=== PATIENT | female | born 1965 | race Caucasian/White ===

== ENCOUNTER → 2016-11-22 | Outpatient (CLI) | payer BC ==
[~2016-11-22] MED LIST: ATOR-24 PO; CYCL0.052 OP; FLUT0.0529; IBUP-1050 PO; LEVO100T7 PO; LORA-741 PO; PRED10TA PO; PROB1TAB16 PO; SERT-234 PO
--- NOTE | 2016-11-23 14:07 | MAMMOGRAPHY REPORT ---
BILATERAL DIGITAL SCREENING MAMMOGRAM TOMOSYNTHESIS WITH CAD: 11/22/2016 CLINICAL HISTORY: Routine screening. Patient has no complaints. TECHNIQUE: Breast tomosynthesis in addition to standard 2D mammography was performed. Current study was also evaluated with a Computer Aided Detection (CAD) system. COMPARISON: Comparison is made to exams dated: 11/20/2015 mammogram, 11/18/2014 mammogram, 09/24/2013 ultrasound, 07/24/2012 mammogram, 06/30/2011 mammogram, and 06/28/2010 ultrasound - [facility]. BREAST COMPOSITION: There are scattered areas of fibroglandular density in both breasts. FINDINGS: There are stable asymmetries in the left upper outer middle and posterior breast. No kathy picious mass, architectural distortion or cluster of microcalcifications is seen. IMPRESSION: ACR BI-RADS CATEGORY 1: NEGATIVE There is no mammographic evidence of malignancy. A 1 year screening mammogram is recommended. The p atient will receive written notification of the results. Approximately 10% of breast cancers are not detected with mammography. A negative mammographic repor t should not delay biopsy if a clinically suggestive mass is present. Laurence Francis M.D. ay/:11/22/2016 21:36:17 Proofing Machine Operator: [place] BIGGS(Aiyana)(M), [facility] letter sent: Normal 1/2 BI-RADS Code: ACR BI-RADS Category 1: Negative
== END | disposition home or self-care (01) ==
LOC: C.MAMM 08:23
PROVIDERS: ATTEND Obstetrics & Gynecology
DX: Z12.31 Encounter for screening mammogram for malignant neoplasm of breast (principal)

== ENCOUNTER → 2016-12-30 | Outpatient (CLI) | payer BC | END | disposition home or self-care (01) | LOC: C.PAPS 16:39 | PROVIDERS: ATTEND Obstetrics & Gynecology | DX: Z01.419 Encounter for gynecological examination (general) (routine) without abnormal findings (principal) ==

== ENCOUNTER → 2017-11-30 | Outpatient (CLI) | payer OTHER ==
--- NOTE | 2017-12-04 07:39 | MAMMOGRAPHY REPORT ---
BILATERAL DIGITAL SCREENING MAMMOGRAM TOMOSYNTHESIS WITH CAD: 11/30/2017 CLINICAL HISTORY: Routine screening. Patient has no complaints. TECHNIQUE: Breast tomosynthesis in addition to standard 2D mammography was performed. Current study was also evaluated with a Computer Aided Detection (CAD) system. COMPARISON: Comparison is made to exams dated: 11/22/2016 mammogram, 11/20/2015 mammogram, 11/18/2014 m ammogram, 09/20/2013 mammogram, 07/24/2012 mammogram, and 06/30/2011 mammogram - [facility]. BREAST COMPOSITION: There are scattered areas of fibroglandular density in both breasts. FINDINGS: No suspicious masses, calcifications, or areas of architectural distortion are noted in ei ther breast. There has been no significant interval change compared to prior exams. IMPRESSION: ACR BI-RADS CATEGORY 1: NEGATIVE There is no mammographic evidence of malignancy. A 1 year screening mammogram is recommended. The pa tient will receive written notification of the results. Approximately 10% of breast cancers are not detected with mammography. A negative mammographic report should not delay biopsy if a clinically suggestive mass is present. Leann Richardson M.D. ah/:11/30/2017 15:36:28 Engineer/Conductor: [place] [employer](Aiyana)(M), [facility] letter sent: Normal 1/2 BI-RADS Code: ACR BI-RADS Category 1: Negative
== END | disposition home or self-care (01) ==
LOC: C.MAMM 14:48
PROVIDERS: ATTEND Obstetrics & Gynecology
DX: Z12.31 Encounter for screening mammogram for malignant neoplasm of breast (principal)

== ENCOUNTER → 2018-01-29 | Outpatient (CLI) | payer OTHER | END | disposition home or self-care (01) | LOC: C.PAPS 18:38 | PROVIDERS: ATTEND Obstetrics & Gynecology | DX: Z01.419 Encounter for gynecological examination (general) (routine) without abnormal findings (principal) ==

== ENCOUNTER 2021-02-11 03:09 | Observation (INO) ==
[2021-02-11] MEDS ORDERED: FAMOTIDINE 20MG/5ML IV PUSH IV STA (03:22)
[2021-02-11] MEDS ORDERED: SODIUM CHLORIDE 0.9% 1000ML 1,000 ML IV STA (03:22)
[2021-02-11] MEDS ORDERED: GI COCKTAIL ED USE PO ONE (03:22)
--- NOTE | 2021-02-11 03:38 | Emergency Department Note ---
History of Present Illness General Chief complaint: Abdominal Pain Stated complaint: ABDOMINAL DISCOMFORT/NAUSEA Time Seen by Provider: 02/11/21 03:15 History of Present Illness Maximum Pain Intensity: 4 This 55-year-old presents to the ER complaining of epigastric discomfort Location: Epigastric Quality: Nauseated Severity: Moderate Duration: This evening Timing: This evening Context: Patient was concerned and came in Modifying factors: better with nothing; worse with laying flat Patient states last night she had a similar episode. This does not feel like her reflux. She still has her gallbladder. Patient denies chest pain, dyspnea, fevers, vomiting, diarrhea, urinary symptoms. Home Medications Medication Instructions Recorded Confirmed Type atorvastatin 40 mg tablet 40 mg PO PM tab 07/23/19 09/08/20 History levothyroxine 100 mcg tablet 100 mcg PO QAM tab 07/23/19 09/08/20 History metformin 500 mg tablet 1,000 mg PO QPM 12/30/19 09/08/20 History sertraline 50 mg tablet 50 mg PO PM tab 12/30/19 09/08/20 History loratadine [Claritin] 10 mg PO DAILY PRN 01/02/20 09/08/20 History "Allergy Shots" 1 dose IM WK 01/16/20 09/01/20 History fluticasone propionate [Flonase 2 spray INTRANASAL DAILY PRN 01/16/20 09/01/20 History Allergy Relief] lorazepam 0.5 mg PO DAILY PRN 01/16/20 09/01/20 History Januvia 100 mg PO QAM 09/01/20 09/08/20 History cholecalciferol (vitamin D3) 125 mcg PO HS 09/01/20 09/08/20 History [Vitamin D3] diclofenac sodium [Voltaren] 2 g TOPICAL QID PRN 09/01/20 09/08/20 History ibuprofen [Advil] 400 mg PO BID PRN 09/01/20 09/08/20 History lisinopril 2.5 mg PO HS 09/01/20 09/08/20 History triamcinolone acetonide 1 applic TOPICAL HS PRN 09/01/20 09/08/20 History Allergies Allergy/AdvReac Type Severity Reaction Status Date / Time mold AdvReac Mild HEAD Verified 09/08/20 13:10 PRESSURE Yeast AdvReac Mild dry skin Verified 09/08/20 13:10 amoxicillin AdvReac Unknown diarrhea Verified 09/08/20 13:10 dust AdvReac Sneezing Uncoded 09/08/20 13:10 Past Med/Surg History Medical History Anxiety Arthritis Atypical ductal hyperplasia of left breast Back problem occasional back pain Benign positional vertigo Depression Diabetes mellitus, type 2 NIDDM Dry eyes Fatty liver GERD (gastroesophageal reflux disease) hx Hyperlipidemia Hypertension Hypothyroidism Kidney disease reason for lisinopril per patient Morbid obesity Sleep apnea "mild"/no device Surgical History H/O cervical biopsy History of esophagogastroduodenoscopy (EGD) History of tooth extraction WISDOM TEETH Hx of colonoscopy Hx of lumpectomy S/P sinus surgery S/P tonsillectomy Family History Father Myocardial infarction Heart disease Mother Breast cancer Dx in 80s Heart disease Grandmother Cancer Hypertension Grandmother (Maternal) Colorectal cancer Grandmother (Paternal) Diabetes Denies family history of Ovarian cancer Social History Smoking Status: Never smoker Second Hand Exposure: Yes (as a child); Hx Alcohol Use: Yes Alcohol type: wine Hx Substance Use: No Preferred Language: Kazakh Communication Ability: Effective Pillowcase Turner Required: No Beliefs That Will Affect Care: None marital status: Current Living Situation: Spouse current occupational status: unemployed 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 Feels Safe at Home: Yes Assistive Devices: Glasses Review of Systems A total of 10 systems reviewed and were otherwise negative Physical Exam Vital Signs Vital Signs - 24 hr 02/11/21 03:16 02/11/21 03:30 02/11/21 03:40 Temperature 36.9 C Temperature Source Oral Pulse Rate 86 81 Pulse Rhythm Regular Pulse Strength Normal Respiratory Rate 20 18 Respiratory Effort / Characteristics Non-Labored Spontaneous Respiratory Depth Normal Respiratory Pattern Regular Blood Pressure 143/81 H 129/87 Blood Pressure Mean 101 101 Blood Pressure Position Sitting Pulse Oximetry 98 98 97 Oxygen Delivery Method Room Air Room Air Sepsis Recent Fever Within 48 Hours No Sepsis New/Unexplained Change in Mental Status N/A Sepsis Action Taken by Nursing No Action Required 02/11/21 05:21 02/11/21 05:25 02/11/21 06:00 Temperature Temperature Source Pulse Rate 87 90 91 H Pulse Rhythm Pulse Strength Respiratory Rate 19 15 17 Respiratory Effort / Characteristics Respiratory Depth Respiratory Pattern Blood Pressure 127/73 127/73 139/78 Blood Pressure Mean 91 91 98 Blood Pressure Position Pulse Oximetry 98 96 99 Oxygen Delivery Method Sepsis Recent Fever Within 48 Hours Sepsis New/Unexplained Change in Mental Status Sepsis Action Taken by Nursing VITALS: Vitals are noted on the nurse's note and reviewed by myself. Vital signs stable. GENERAL: Pleasant female, in no acute distress, nondiaphoretic, well-developed well-nourished. SKIN: Capillary reflex less than 2 seconds. HEENT: Normocephalic. PERRLA. EOMI. Nares patent. Mucous membranes moist. Neck is supple without nuchal rigidity. HEART: Regular rate and rhythm LUNGS: Clear to auscultation bilaterally without wheezes, rales or rhonchi. No retractions or accessory muscle use. ABDOMEN: Positive bowel sounds x 4. Normal tympanic percussion. Soft, tender to palpation epigastric right upper quadrant, without masses or organomegaly. No CVA tenderness no guarding or rebound tenderness. MUSCULOSKELETAL: No gross musculoskeletal defects. NEURO: Patient was alert and oriented to person place and time. No focal neurological deficits. Course Administered Medications Discontinued Medications Al Hydrox/Mg Hydrox/Simethicone (Gi Cocktail Ed Use) 1 dose PO ONE ONE Stop: 02/11/21 03:23 Last Admin: 02/11/21 03:42 Dose: 1 dose Documented by: [id number] Dicyclomine HCl (Dicyclomine Hcl 10 Mg/Ml 2 Ml Amp/Vial) 20 mg IM NOW ONE Stop: 02/11/21 04:45 Last Admin: 02/11/21 04:59 Dose: 20 mg Documented by: [id number] Famotidine (Famotidine 20mg/5ml Iv Push) 20 mg IV ONE STA Stop: 02/11/21 03:23 Last Admin: 02/11/21 03:42 Dose: 20 mg Documented by: [id number] Sodium Chloride (Nss 1000ml) 1,000 mls @ 999 mls/hr IV .Q1H1M STA Stop: 02/11/21 04:22 Last Infusion: 02/11/21 04:56 Dose: 0 mls/hr Documented by: [id number] Admin: 02/11/21 03:41 Dose: 999 mls/hr Documented by: [id number] Ioversol (Ioversol 100ml) 100 ml IV ONCE ONE Stop: 02/11/21 05:24 Last Admin: 02/11/21 05:23 Dose: 80 ml Documented by: [id number] Ondansetron HCl (Ondansetron Inj 2 Mg/Ml 2 Ml Vial) 4 mg IV NOW STA Stop: 02/11/21 04:45 Last Admin: 02/11/21 04:59 Dose: 4 mg Documented by: [id number] Medical Decision Making Medical Records Attestation: I reviewed the patient's medical records. Home Medications Current Medication List: was personally reviewed by me Laboratory Data Attestation: I reviewed the patient's lab results. Result diagrams: 02/11/21 03:30 02/11/21 03:30 Lab Results 02/11/21 02/11/21 02/11/21 Range/Units 03:30 03:30 04:53 WBC 9.21 (4.8-10.8) K/uL RBC 4.56 (4.2-5.4) M/uL Hgb 12.5 (12.0-16.0) g/dL Hct 38.5 (37-47) % MCV 84.4 (80-100) fL MCH 27.4 (25-34) pg MCHC 32.5 (32-36) g/dL RDW Std Deviation 40.2 (36.4-46.3) fL RDW Coeff of [place] 13.3 (11.5-14.5) % Plt Count 295 (130-400) K/uL MPV 8.7 (7.4-10.4) fL Immature Gran % (Auto) 0.1 % Neut % (Auto) 60.7 % Lymph % (Auto) 23.8 % [place] % (Auto) 10.5 % Eos % (Auto) 4.6 % Baso % (Auto) 0.3 % Neut # (Auto) 5.59 (1.4-6.5) K/uL Lymph # (Auto) 2.19 (1.2-3.4) K/uL [place] # (Auto) 0.97 H (0.11-0.59) K/uL Eos # (Auto) 0.42 (0-0.5) K/uL Baso # (Auto) 0.03 (0-0.2) K/uL Immature Gran # (Auto) 0.01 (0.00-0.02) K/uL Sodium 141 (136-145) mmol/L Potassium 4.3 (3.5-5.1) mmol/L Chloride 109 H (98-107) mmol/L Carbon Dioxide 24 (21-32) mmol/L Anion Gap 8.0 (3-11) BUN 16 (7-18) mg/dl Creatinine 0.90 (0.6-1.2) mg/dl Est Cr Clr Drug Dosing 90.8 ml/min Est GFR ( Amer) 82.8 Est GFR (Non-Af Amer) 71.5 BUN/Creatinine Ratio 18.0 (10-20) Glucose 147 H (70-99) mg/dl Calcium 9.0 (8.5-10.1) mg/dl Total Bilirubin 0.3 (0.2-1) mg/dl AST 38 H (15-37) U/L ALT 74 (12-78) U/L Alkaline Phosphatase 149 H (45-117) U/L Troponin I < 0.015 (0-0.045) ng/ml Total Protein 7.6 (6.4-8.2) gm/dl Albumin 3.4 (3.4-5.0) gm/dl Globulin 4.2 H (2.5-4.0) gm/dl Albumin/Globulin Ratio 0.8 L (0.9-2) Lipase 255 (73-393) U/L Specimen Hemolysis Urine Color Yellow Urine Appearance Clear (Clear) Urine pH 5.0 (4.5-7.5) Ur Specific [place] 1.018 (1.000-1.030) Urine Protein Negative (Negative) Urine Glucose (UA) Negative (Negative) Urine Ketones Negative (Negative) Urine Blood Negative (Negative) Urine Nitrite Negative (Negative) Urine Bilirubin Negative (Negative) Urine Urobilinogen Negative (Negative) Ur Leukocyte Esterase Negative (Negative) COVID-19 Eval Order 02/11/21 Range/Units 06:22 WBC (4.8-10.8) K/uL RBC (4.2-5.4) M/uL Hgb (12.0-16.0) g/dL Hct (37-47) % MCV (80-100) fL MCH (25-34) pg MCHC (32-36) g/dL RDW Std Deviation (36.4-46.3) fL RDW Coeff of [place] (11.5-14.5) % Plt Count (130-400) K/uL MPV (7.4-10.4) fL Immature Gran % (Auto) % Neut % (Auto) % Lymph % (Auto) % [place] % (Auto) % Eos % (Auto) % Baso % (Auto) % Neut # (Auto) (1.4-6.5) K/uL Lymph # (Auto) (1.2-3.4) K/uL [place] # (Auto) (0.11-0.59) K/uL Eos # (Auto) (0-0.5) K/uL Baso # (Auto) (0-0.2) K/uL Immature Gran # (Auto) (0.00-0.02) K/uL Sodium (136-145) mmol/L Potassium (3.5-5.1) mmol/L Chloride (98-107) mmol/L Carbon Dioxide (21-32) mmol/L Anion Gap (3-11) BUN (7-18) mg/dl Creatinine (0.6-1.2) mg/dl Est Cr Clr Drug Dosing ml/min Est GFR ( Amer) Est GFR (Non-Af Amer) BUN/Creatinine Ratio (10-20) Glucose (70-99) mg/dl Calcium (8.5-10.1) mg/dl Total Bilirubin (0.2-1) mg/dl AST (15-37) U/L ALT (12-78) U/L Alkaline Phosphatase (45-117) U/L Troponin I (0-0.045) ng/ml Total Protein (6.4-8.2) gm/dl Albumin (3.4-5.0) gm/dl Globulin (2.5-4.0) gm/dl Albumin/Globulin Ratio (0.9-2) Lipase (73-393) U/L Specimen Hemolysis Urine Color Urine Appearance (Clear) Urine pH (4.5-7.5) Ur Specific [place] (1.000-1.030) Urine Protein (Negative) Urine Glucose (UA) (Negative) Urine Ketones (Negative) Urine Blood (Negative) Urine Nitrite (Negative) Urine Bilirubin (Negative) Urine Urobilinogen (Negative) Ur Leukocyte Esterase (Negative) COVID-19 Eval Order CovFluRsv at [facility] Imaging Data Attestation: I personally reviewed and interpreted this imaging study as follows: MDM Narrative Prior records/ancillary studies reviewed. Triage Nursing notes reviewed. The patient's history was concerning for abdominal pain. Differential diagnosis: Etiologies such as appendicitis, diverticulitis, PUD, biliary pathology, UTI, pancreatitis, obstruction, mesenteric ischemia, aortic pathology, infections, inflammatory bowel disease, renal colic, as well as others were entertained. Physical examination findings: As above. ER treatment provided: An order was placed for continuous cardiac monitoring. The monitor shows a rate of 60-100 with a sinus rhythm. IV fluids, Pepcid, GI cocktail, Zofran, Bentyl On reassessment the patient felt better. Diagnostics interpreted by me: ECG: Ordered for epigastric discomfort EKG: Normal sinus, normal intervals, no acute ST-T wave changes. Impression normal sinus rhythm interpreted by myself I think arrhythmia is unlikely. EKG shows normal sinus rhythm with no interval abnormalities such as QT prolongation or WPW. There are no findings to suggest Brugada syndrome. Cardiac monitoring in the emergency department reveals no tachycardic or bradycardic dysrhythmia. Hypertrophic cardiomyopathy was cons idered but there are no clear historical elements pointing toward this. EKG is not suggestive. The QRS voltage is not extremely large and there are no suggestive Q waves. The labs revealed mild hyperglycemia that DKA. No leukocytosis Negative urine. Negative troponin Imaging studies: US RUQ: The visualized portion of the pancreas is unremarkable. There is fatty infiltration of the liver and hepatomegaly with the liver measuring 20.3 cm craniocaudad. The portal vein is patent with normal direction of flow. No focal liver lesion is seen. The right kidney measures 11.3 cm with normal appearance. No hydronephrosis. The gallbladder is partially distended with no visible stones. The wall t hickness is normal. No pericholecystic fluid is seen. The common bile duct is nondilated measuring 5 mm. Radiologist: Melchor Lopez MD CT ABDOMEN & PELVIS With Contrast: The appendix is upper normal measuring 10-11 mm in diameter. No definite surrounding inflammation is seen to indicate acute appendicitis. The appendix is located 2 cm from the right mid lateral abdominal wall. Correlate with physical exam findings. Bowel loops are nondilated. No acute inflammatory changes are seen involving the bowel. Fatty infiltration of the liver and hepatomegaly with the liver measuring 21 cm craniocaudad. No focal liver lesion is seen. The gallbladder, spleen, pancreas, adrenal glands, kidneys appear unremarkable. The uterus, adnexa, and urinary bladder appear within normal limits. Moderate degenerative changes in the lower lumbar spine. No acute fracture or destructive bone lesion is seen. Radiologist: Melchor Lopez MD Consultation: A consultation was placed with the surgical PA Joselito. the case was discussed and diagnostics were reviewed. The patient was evaluated in the ER for further treat ment. Dr. Pennington will come in and evaluate the patient. Exam and history seem consistent abdominal pain with unclear etiology. CAT scan was reviewed and surgery will evaluate the patient. Case is signed out to nurse practitioner Kailee Quick pending surgical evaluation and reevaluation stable condition. By the evaluation outlined above emergent etiologies such as diverticulitis, PUD, biliary pathology, UTI, pancreatitis, obstruction, mesenteric ischemia, aortic pathology, inflammatory bowel disease, renal colic, as well as others were deemed relatively unlikely. The chart was completed utilizing [employer] Speech voice recognition software. Grammatical errors, random word insertions, pronoun errors, and incomplete sentences are an occassional consequence of this system due to software limitations, ambient noise, and hardware issues. Any formal questions or concerns about the content, text, or information contained within the body of this dictation should be directly addressed to the physician pharmacy innovation assistant for clarification. Impression & Plan Abdominal pain in female patient Discharge Plan Visit Data Chief Complaint: Abdominal Pain Stated Complaint: ABDOMINAL DISCOMFORT/NAUSEA ED Provider: Thuy Shabazz ED Midlevel Provider: Jodee Cardenas Discharge Problem: Abdominal pain in female patient Patient Disposition: Being Evaluated by Surgeon Condition: Good Discharge Instructions Activity Restrictions/Additional Instructions: Forms Stand Alone Forms: [employer] Prescriptions Prescriptions: No Action sertraline 50 mg tablet 50 mg PO PM RF: 0 metformin 500 mg tablet 1,000 mg PO QPM RF: 0 levothyroxine 100 mcg tablet 100 mcg PO QAM RF: 0 atorvastatin 40 mg tablet 40 mg PO PM RF: 0 lisinopril 2.5 mg Tablet 2.5 mg PO HS RF: 0 Januvia 100 mg Tablet 100 mg PO QAM RF: 0 cholecalciferol (vitamin D3) [Vitamin D3] 125 mcg (5,000 unit) Tablet 125 mcg PO HS RF: 0 diclofenac sodium [Voltaren] 1 % Gel 2 g TOPICAL QID PRN (Reason: Pain) RF: 0 triamcinolone acetonide 0.1 % Cream 1 applic TOPICAL HS PRN (Reason: Itching) RF: 0 ibuprofen [Advil] 200 mg Tablet 400 mg PO BID PRN (Reason: Pain) RF: 0 loratadine [Claritin] 10 mg Tablet 10 mg PO DAILY PRN (Reason: Allergy Symptoms) RF: 0 lorazepam 0.5 mg Tablet 0.5 mg PO DAILY PRN (Reason: Anxiety) RF: 0 fluticasone propionate [Flonase Allergy Relief] 50 mcg/actuation [place],Suspension 2 spray INTRANASAL DAILY PRN (Reason: sinus congestion) RF: 0 "Allergy Shots" 1 dose IM WK RF: 0 Referrals Referrals: PCP,NO [Primary Care Provider] -
[2021-02-11 03:39] LABS: Basophils # (auto) 0.03 K/uL (0-0.2); Basophils % (auto) 0.3 %; Eosinophils # (auto) 0.42 K/uL (0-0.5); Eosinophils % (auto) 4.6 %; Hematocrit (blood only) 38.5 % (37-47); Hemoglobin 12.5 g/dL (12.0-16.0); Immature Granulocytes # (auto) 0.01 K/uL (0.00-0.02); Immature Granulocytes % (auto) 0.1 %; Lymphocytes # (auto) 2.19 K/uL (1.2-3.4); Lymphocytes % (auto) 23.8 %; Mean Corpuscular Hemoglobin 27.4 pg (25-34); Mean Corpuscular Hgb Conc 32.5 g/dL (32-36); Mean Corpuscular Volume 84.4 fL (80-100); Mean Platelet Volume 8.7 fL (7.4-10.4); Monocytes # (auto) 0.97 K/uL (0.11-0.59); Monocytes % (auto) 10.5 %; Neutrophils # (auto) 5.59 K/uL (1.4-6.5); Neutrophils % (auto) 60.7 %; Platelet Count 295 K/uL (130-400); RDW Coefficient of Variation 13.3 % (11.5-14.5); RDW Standard Deviation 40.2 fL (36.4-46.3); Red Blood Count 4.56 M/uL (4.2-5.4); White Blood Count 9.21 K/uL (4.8-10.8)
[2021-02-11 04:15] LABS: Alanine Aminotransferase 74 U/L (12-78); Albumin Globulin Ratio 0.8 (0.9-2); Albumin Level 3.4 gm/dl (3.4-5.0); Alkaline Phosphatase 149 U/L (45-117); Aspartate Aminotransferase 38 U/L (15-37); Bilirubin,Total 0.3 mg/dl (0.2-1); Blood Urea Nitrogen 16 mg/dl (7-18); Carbon Dioxide 24 mmol/L (21-32); Chloride 109 mmol/L (98-107); Creatinine Clr Calc Pharmacy 90.8 ml/min; Est GFR (African American) 82.8; Est GFR (Non-African American) 71.5; Globulin 4.2 gm/dl (2.5-4.0); Glucose 147 mg/dl (70-99); Lipase 255 U/L (73-393); Potassium 4.3 mmol/L (3.5-5.1); Sodium 141 mmol/L (136-145); Total Protein 7.6 gm/dl (6.4-8.2); Troponin I < 0.015 ng/ml (0-0.045)
[2021-02-11] MEDS ORDERED: ONDANSETRON INJ 2 MG/ML 2 ML VIAL IV STA (04:44)
[2021-02-11] MEDS ORDERED: DICYCLOMINE HCL 10 MG/ML 2 ML AMP/VIAL IM ONE (04:44)
[2021-02-11 05:11] LABS: Appearance Urine Clear (Clear); Bilirubin Urine Negative (Negative); Blood Urine Negative (Negative); Color Urine Yellow; Glucose Urine UA Negative (Negative); Ketones Urine Negative (Negative); Leukocyte Esterase Urine Negative (Negative); Nitrite Urine Negative (Negative); Protein Urine Negative (Negative); Specific Gravity Urine 1.018 (1.000-1.030); Urobilinogen Urine Negative (Negative)
[2021-02-11] MEDS ORDERED: OPTIRAY 320 100ml IV ONE (05:23)
--- NOTE | 2021-02-11 06:34 | Surgery Consultation ---
Date of Consultation February 11, 2021 Assessment & Plan (1) Abdominal pain in female patient: The etiology of patient's abdominal pain is not entirely clear. Based on her physical exam findings as well as clinical presentation and imaging we have offered her 2 options: 1. We could admit the patient to the hospital for observation repeating labs in approximately 24 hours. If her repeat labs and clinical exam are indicative of appendicitis we could then proceed with appendectomy 2. We can proceed directly with laparoscopy which would definitively tell us if the patient has an appendicitis After presenting the patient of these 2 options she is still uncertain about how she would like to proceed and would like to think about these options for a few more minutes. I discussed case with my attending physician Dr. Pennington who will evaluate the patient at bedside this morning. Further recommendations will be forthcoming based on patient's clinical status as well as Dr. Pennington's review. as above. pt seen. unclear etiology. pain is generalized. no leukocytosis. associated nausea. symptoms have been going on for "weeks"..... will admit. order HIDA scan. repeat wbc/crp tomorrow. is symptoms progress may need dx laparoscopy/appendectomy. if symptoms improve and HIDA neg will d/c tomorrow for out-pt work up. History of Present Illness Reason for Consultation: Abdominal pain History of Present Illness This is a 55-year-old female who came to [facility] emergency department secondary to abdominal pain. Patient says that the pain was initially located primarily in the epigastric area but now at the time of my interview has generalized pain. She notes that looking back she has had similar pain to this in and on and off fashion over the past several weeks however last evening she had associated nausea vomiting and the pain was more severe than usual so this prompted her emergency room visit. She denies any fevers, shakes, chills. She did have some nausea vomiting. He notes her last oral intake was approximately 6:00 PM last night. She notes that she has never had any surgical procedures on her abdomen. She denies any modifying factors and notes the pain does not radiate. In the emergency department the patient did have labs and imaging which I independently reviewed. She had an ultrasound of her gallbladder that showed a partial distention of the gallbladder with no visible gallstones and no gallbladder wall thickness. There is no pericholecystic fluid and bile duct was not dilated on the study. This was followed with a CT scan of the abdomen and pelvis utilizing IV contrast without oral contrast. On this study the appendix was noted to be in the upper limits of normal measuring 10 to 11 mm in size. There is no definite inflammation seen in the periappendiceal region. Labs included a CBC where her white blood cell count, hemoglobin, hematocrit, and platelet count are all within normal range. Chemistry profile showed her sodium, potassium, BUN, and creatinine were all within normal range. Her lipase was noted to be normal. Urinalysis was not indicative of urinary tract infecti on. At the time of my interview the patient was resting comfortably in bed in no distress. Allergies Allergy/AdvReac Type Severity Reaction Status Date / Time mold AdvReac Mild HEAD Verified 09/08/20 13:10 PRESSURE Yeast AdvReac Mild dry skin Verified 09/08/20 13:10 amoxicillin AdvReac Unknown diarrhea Verified 09/08/20 13:10 dust AdvReac Sneezing Uncoded 09/08/20 13:10 Home Medications Medication Instructions Recorded Confirmed Type atorvastatin 40 mg tablet 40 mg PO PM tab 07/23/19 09/08/20 History levothyroxine 100 mcg tablet 100 mcg PO QAM tab 07/23/19 09/08/20 History metformin 500 mg tablet 1,000 mg PO QPM 12/30/19 09/08/20 History sertraline 50 mg tablet 50 mg PO PM tab 12/30/19 09/08/20 History loratadine [Claritin] 10 mg PO DAILY PRN 01/02/20 09/08/20 History "Allergy Shots" 1 dose IM WK 01/16/20 09/01/20 History fluticasone propionate [Flonase 2 spray INTRANASAL DAILY PRN 01/16/20 09/01/20 History Allergy Relief] lorazepam 0.5 mg PO DAILY PRN 01/16/20 09/01/20 History Januvia 100 mg PO QAM 09/01/20 09/08/20 History cholecalciferol (vitamin D3) 125 mcg PO HS 09/01/20 09/08/20 History [Vitamin D3] diclofenac sodium [Voltaren] 2 g TOPICAL QID PRN 09/01/20 09/08/20 History ibuprofen [Advil] 400 mg PO BID PRN 09/01/20 09/08/20 History lisinopril 2.5 mg PO HS 09/01/20 09/08/20 History triamcinolone acetonide 1 applic TOPICAL HS PRN 09/01/20 09/08/20 History Patient History Medical History Anxiety Arthritis Atypical ductal hyperplasia of left breast Back problem occasional back pain Benign positional vertigo Depression Diabetes mellitus, type 2 NIDDM Dry eyes Fatty liver GERD (gastroesophageal reflux disease) hx Hyperlipidemia Hypertension Hypothyroidism Kidney disease reason for lisinopril per patient Morbid obesity Sleep apnea "mild"/no device Surgical History H/O cervical biopsy History of esophagogastroduodenoscopy (EGD) History of tooth extraction WISDOM TEETH Hx of colonoscopy Hx of lumpectomy S/P sinus surgery S/P tonsillectomy Family History Father Myocardial infarction Heart disease Mother Breast cancer Dx in 80s Heart disease Grandmother Cancer Hypertension Grandmother (Maternal) Colorectal cancer Grandmother (Paternal) Diabetes Denies family history of Ovarian cancer Social History Smoking Status: Never smoker Second Hand Exposure: Yes (as a child); Hx Alcohol Use: Yes Alcohol type: wine Hx Substance Use: No Preferred Language: Romanian Communication Ability: Effective [employer] Required: No Beliefs That Will Affect Care: None marital status: Current Living Situation: Spouse current occupational status: unemployed 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 Feels Safe at Home: Yes Assistive Devices: Glasses Review of Systems Constitutional: no fever and no chills Eyes: no diplopia Ear, Nose, Mouth, Throat: no ear pain Respiratory: no cough and no dyspnea Cardiovascular: no chest pain Gastrointestinal: + abdominal pain, + nausea and + vomiting Genitourinary: no dysuria Integumentary: no rash Neurologic: no localized weakness Physical Exam Constitutional: well developed, well nourished and + obese; no acute distress Eyes: no conjunctival abnormality Wears glasses ENMT: Ears: no hearing impairment Neck: trachea midline Respiratory: normal respiratory effort; no respiratory distress and no labored breathing Cardiovascular: Rate/Rhythm: regular rate and regular rhythm Gastrointestinal (Abdomen): Abdomen is rotund but soft. Bowel sounds are present. There is no rebound tenderness or guarding. The patient did have pain in a generalized fashion throughout her abdomen with palpation. With deep palpation of the right lower quadrant this did elicit a significant pain response. Musculoskeletal: No calf tenderness Skin: no rashes, warm and dry Neurologic: moves all extremities Psychiatric: A+Ox3, euthymic affect Results & Data ([facility]) Vital Signs (Past 12 Hours) Vital Signs Temp Pulse Resp BP Pulse Ox 02/11/21 05:21 87 19 127/73 98 02/11/21 03:40 81 18 129/87 97 02/11/21 03:30 98 02/11/21 03:16 36.9 C 86 20 143/81 H 98 PG Care Time/CCT Total # of Minutes Spent Total Time Spent with Patient: Total time spent is greater than 50% in coordination of care (as documented) at patient's floor/unit and/or counseling patient: Coding Level of Care Code 89931 Inpt Consult Level 4 Diagnoses Abdominal pain in female patient R10.9
[2021-02-11 07:11] LABS: Influenza A virus by PCR Negative (Neg); Influenza B virus by PCR Negative (Neg); RSV by PCR Negative (Neg); SARS CoV2 RNA(COVID-19) InHosp NEGATIVE (Negative)
--- NOTE | 2021-02-11 07:29 | CT Scan Report ---
ABDOMEN AND PELVIS CT WITH IV CONTRAST CT DOSE: 1935.11 mGy.cm HISTORY: mid abd pain TECHNIQUE: Multiaxial CT images of the abdomen and pelvis were performed following the use of intrave nous contrast. A dose lowering technique was utilized adhering to the principles of ALARA. COMPARISON STUDY: None. FINDINGS: The lung bases are clear. No pneumoperitoneum. No pneumatosis. No suspicious lytic or blast ic osseous lesions. Mild hepatic steatosis. The gallbladder, spleen, adrenal glands, pancreas, and ki dneys are unremarkable. No retroperitoneal lymphadenopathy. The bladder, uterus, bilateral adnexa are within normal limits. No pelvic free fluid. No bowel wall thickening or obstruction. The appendix me asures up to 8 mm in diameter. However, there are no periappendiceal inflammatory change to suggest a cute appendicitis. IMPRESSION: 1. The appendix measures up to 8 mm in diameter. However, there is no periappendiceal inflammatory ch jd to suggest acute appendicitis. 2. No definite bowel wall thickening or obstruction. 3. Hepatic steatosis. 4. No hydronephrosis. ACT 112: Negative or not required by law. Electronically signed by: Isiah Perkins M.D. 02/11/2021 7:28 AM
--- NOTE | 2021-02-11 08:02 | Ultrasound Report ---
US gallbladder CLINICAL HISTORY: Abdominal pain. COMPARISON STUDY: Right upper quadrant ultrasound August 23, 2013. FINDINGS: This exam is compromised by suboptimal penetration. Hepatic echogenicity is increased. Sens itivity for detection of hepatic lesions is diminished on this exam but none are identified. There is mild hepatomegaly. The pancreatic body is normal. Head and tail are obscured. No gallstones are note d. There is no gallbladder wall thickening. There is no biliary ductal dilatation. The common bile me asures 5 mm in caliber. There is no right hydronephrosis. IMPRESSION: 1. No gallstones or biliary ductal dilatation. 2. Hepatic steatosis. 3. Partially obscured pancreas. ACT 112: Negative or not required by law. Electronically signed by: Iker Moncada M.D. 02/11/2021 8:01 AM
[2021-02-11] MEDS ORDERED: LORATADINE 10 MG TAB PO PRN (09:05)
[2021-02-11] MEDS ORDERED: MoRPHine SULFATE 2 MG/ML CARP IV PRN (09:05)
[2021-02-11] MEDS ORDERED: ONDANSETRON INJ 2 MG/ML 2 ML VIAL IV PRN (09:05)
[2021-02-11] MEDS ORDERED: ACETAMINOPHEN 1,000 MG/100 ML VIAL IV PRN (09:05)
[2021-02-11] MEDS ORDERED: FLUTICASONE PROPIONATE NA SPR 16 GM BTL PRN (09:05)
[2021-02-11] MEDS ORDERED: LORazepam 0.5 MG TAB PO PRN (09:05)
[2021-02-11] MEDS ORDERED: DICLOFENAC SOD 1% GEL 100 GM TUBE EXT PRN (09:05)
[2021-02-11] MEDS ORDERED: MoRPHine SULFATE 4 MG/ML 1 ML CARP\\VIAL IV PRN (09:05)
[2021-02-11] MEDS ORDERED: PHARMACY GLYCEMIC MGMT CONSULT SCH (09:22)
[2021-02-11] MEDS ORDERED: GLUCOSE 40% GEL 15 GM TUBE PO PRN (09:45)
[2021-02-11] MEDS ORDERED: CARBOHYDRATES FOR HYPOGLYCEMIA PO PRN (09:45)
[2021-02-11] MEDS ORDERED: GLUCOSE 10 TABS/TUBE PO PRN (09:45)
[2021-02-11] MEDS ORDERED: GLUCAGON FOR INJ 1 MG VIAL IM PRN (09:45)
[2021-02-11] MEDS ORDERED: DEXTROSE 50% 50 ML SYRINGE IV PRN (09:45)
[2021-02-11] MEDS: FAMOTIDINE 20 MG in SYRINGE 3 ML IV SCH (09:57)
[2021-02-11] MEDS: SODIUM CHLORIDE 0.9% 1000ML 1,000 ML IV SCH ×2 (09:57→20:00)
[2021-02-11] MEDS: LEVOTHYROXINE SODIUM 100 MCG TABLET PO SCH (09:58)
[2021-02-11] MEDS: INSULIN ASPART 100 UNITS/ML 3 ML PEN SC SCH ×2 (13:02→17:36)
[2021-02-11] MEDS ORDERED: SODIUM CHLORIDE 0.9% IV ONE (14:00)
[2021-02-11] MEDS ORDERED: SINCALIDE IV ONE (14:00)
--- NOTE | 2021-02-11 14:48 | Pharmacy Report ---
Pharmacy Glycemic Short Note 2 - Date of Service February 11, 2021 - Glycemic Short BSG Results (Last 24 hours): 02/11/21 02/11/21 03:30 12:02 Glucose 147 H POC Glucose 131 H OUTPATIENT ANTIDIABETIC REGIMEN: * Metformin 1gm PO qPM * Januvia 100mg PO qAM * HbA1c: 7.8% (01/03/20) -- updated A1c pending with tomorrow's labs ASSESSMENT: * Ms Winkler is a 55yo diabetic female admitted with abdominal pain. * Patient is currently NPO for possible OR tomorrow (for laparoscopy vs appendectomy). * On admission, patient placed on SQ insulin and PO meds held. PLAN FOR INPATIENT GLYCEMIC CONTROL: * Hold outpatient oral diabetes medications * Basal insulin * None at this time * Bolus insulin * NovoLog per scale ACHS or Q6hrs while NPO * Goal Range: Low 110 mg/dL - High 140 mg/dL * Correction Factor: 30 mg/dL/unit * Nutritional / Prandial insulin per carb ratio of 1 unit per 10 grams CHO consumed PLAN FOR DISCHARGE: * pending updated A1c
--- NOTE | 2021-02-11 15:23 | Nuclear Medicine Report ---
NM hepatobiliary EF CLINICAL HISTORY: 55 years-old Female with examine for cholecystitis. Acute right upper quadrant abd ominal pain TECHNIQUE: Following the intravenous administration of 5.5 mCi of technetium-99m Choletec, sequentia l abdominal images were obtained. In order to evaluate the contractile response of the gallbladder, 2.41 mcg of Kinevac was administered by slow intravenous infusion over 30 min starting approximately 60 min after the administration of the radiopharmaceutical. Sequential imaging was continued for 45 min after the start of the Kinevac infusion. COMPARISON: CT abdomen and pelvis 02/11/2021 FINDINGS: There is prompt, uniform accumulation of the tracer by the liver. There is normal filling of the int rahepatic ducts, common bile duct and gallbladder and normal excretion of the tracer into the duodenu m. There is normal contraction of the gallbladder. The calculated gallbladder ejection fraction is 98% (normal >40%). There is moderate enterogastric reflux. IMPRESSION: 1. Normal contractile response of the gallbladder to Kinevac infusion. 2. Moderate enterogastric reflux. ACT 112: Negative or not required by law. The above report was generated using voice recognition software. It may contain grammatical, syntax o r spelling errors. Electronically signed by: Shon Espinal M.D. 02/11/2021 3:22 PM
[2021-02-11] MEDS ORDERED: SERTRALINE HCL 50 MG TABLET PO SCH (21:00)
[2021-02-12] MEDS: INSULIN ASPART 100 UNITS/ML 3 ML PEN SC SCH ×2 (00:25→06:44)
[2021-02-12] MEDS: SODIUM CHLORIDE 0.9% 1000ML 1,000 ML IV SCH ×2 (03:44→10:37)
[2021-02-12] MEDS: LEVOTHYROXINE SODIUM 100 MCG TABLET PO SCH (05:30)
[2021-02-12 05:40] LABS: Basophils # (auto) 0.03 K/uL (0-0.2); Basophils % (auto) 0.4 %; Eosinophils # (auto) 0.38 K/uL (0-0.5); Eosinophils % (auto) 5.4 %; Hematocrit (blood only) 35.6 % (37-47); Hemoglobin 11.7 g/dL (12.0-16.0); Immature Granulocytes # (auto) 0.01 K/uL (0.00-0.02); Immature Granulocytes % (auto) 0.1 %; Lymphocytes # (auto) 1.97 K/uL (1.2-3.4); Lymphocytes % (auto) 27.9 %; Mean Corpuscular Hemoglobin 27.8 pg (25-34); Mean Corpuscular Hgb Conc 32.9 g/dL (32-36); Mean Corpuscular Volume 84.6 fL (80-100); Mean Platelet Volume 8.6 fL (7.4-10.4); Monocytes % (auto) 8.5 %; Neutrophils # (auto) 4.08 K/uL (1.4-6.5); Neutrophils % (auto) 57.7 %; Platelet Count 300 K/uL (130-400); RDW Coefficient of Variation 13.3 % (11.5-14.5); RDW Standard Deviation 40.7 fL (36.4-46.3); Red Blood Count 4.21 M/uL (4.2-5.4); White Blood Count 7.07 K/uL (4.8-10.8)
--- NOTE | 2021-02-12 06:19 | Electrocardiogram Report ---
Test Reason : Blood Pressure : / mmHG Vent. Rate : 081 BPM Atrial Rate : 081 BPM P-R Int : 168 ms QRS Dur : 092 ms QT Int : 388 ms P-R-T Axes : 071 061 036 degrees QTc Int : 450 ms Normal sinus rhythm Normal ECG When compared with ECG of 03-JAN-2020 09:33, No significant change was found Confirmed by Antwan Ledesma ([id number]) on 02/12/2021 6:19:13 AM Referred By: REFERRED SELF Confirmed By:Antwan Ledesma
[2021-02-12 06:24] LABS: Albumin Globulin Ratio 0.9 (0.9-2); Albumin Level 3.2 gm/dl (3.4-5.0); BUN Creatinine Ratio 10.8 (10-20); Bilirubin,Total 0.5 mg/dl (0.2-1); Calcium 8.4 mg/dl (8.5-10.1); Est GFR (African American) 86.3; Est GFR (Non-African American) 74.5; Globulin 3.5 gm/dl (2.5-4.0); Potassium 3.9 mmol/L (3.5-5.1); Total Protein 6.7 gm/dl (6.4-8.2)
--- NOTE | 2021-02-12 07:32 | Pharmacy Report ---
Pharmacy Glycemic Short Note 2 - Date of Service February 12, 2021 - Glycemic Short BSG Results (Last 24 hours): 02/11/21 02/11/21 02/11/21 12:02 17:15 20:27 Glucose POC Glucose 131 H 130 H 129 H 02/12/21 02/12/21 02/12/21 00:21 05:25 06:03 Glucose 151 H POC Glucose 125 H 152 H OUTPATIENT ANTIDIABETIC REGIMEN: * Metformin 1gm PO qPM * Januvia 100mg PO qAM * HbA1c: 7.8% (01/03/20) -- updated A1c pending this AM ASSESSMENT: 02/12 * Pt has received 1 units of insulin over the past 24hrs * 0 units of basal with (not indicated based on BSGs) * 1 units of bolus with NovoLog * BSGs 206-289-391-125-152 mg/dl * Pt remains NPO for possible OR today. * No changes needed at this time. * Will consider the addition of basal insulin when BSG > 180 mg/dl and/or diet resumed. 02/11 * Ms Winkler is a 55yo diabetic female admitted with abdominal pain. * Patient is currently NPO for possible OR tomorrow (for laparoscopy vs appendectomy). * On admission, patient placed on SQ insulin and PO meds held. PLAN FOR INPATIENT GLYCEMIC CONTROL: no changes at this time. * Hold outpatient oral diabetes medications * Basal insulin * None at this time * Bolus insulin * NovoLog per scale ACHS or Q6hrs while NPO * Goal Range: Low 110 mg/dL - High 140 mg/dL * Correction Factor: 30 mg/dL/unit * Nutritional / Prandial insulin per carb ratio of 1 unit per 10 grams CHO consumed PLAN FOR DISCHARGE: * pending updated A1c
[2021-02-12] MEDS: FAMOTIDINE 20 MG in SYRINGE 3 ML IV SCH (08:32)
--- NOTE | 2021-02-12 08:37 | Surgery Progress Note ---
Date of Service February 12, 2021 Assessment & Plan (1) Abdominal pain in female patient: We will initiate a diet and if she tolerates she may go home today. No evidence clinically radiographically or laboratory celaya to indicate acute appendicitis. We discussed her HIDA scan which actually showed biliary hyperkinesia. Her gallbladder may be in fact the etiology of the majority of her symptoms. Nonetheless this is not acute or urgent and we can continue to work this up and plan treatment as an outpatient. We will send her home with some dicyclomine and Zofran in case her symptoms return. I would like to see her back in the office in 1 week. Admission and Anticipated Discharge Date Admission Date: February 11, 2021 Subjective Patient feeling "99% better" no further pain or nausea Physical Exam Constitutional: WD/WN, vitals as above no acute distress and not ill appearing Eyes: PERRL, conjunctivae normal, anicteric sclerae EOM intact bilaterally ENMT: external ear and nose normal, oropharynx normal Ears: no hearing impairment Neck: trachea midline, no thyromegaly Respiratory: normal respiratory effort; no respiratory distress and does not use accessory muscles Cardiovascular: Rate/Rhythm: regular rate and regular rhythm Gastrointestinal (Abdomen): normal bowel sounds, soft, nontender, no hepatosplenomegaly Skin: no rashes, warm and dry Psychiatric: Orientation: alert, oriented x 3 and cooperative Results & Data ([facility]) Vital Signs (Past 12 Hours) Vital Signs Temp Pulse Resp BP Pulse Ox 02/12/21 08:27 36.9 C 75 18 157/79 H 96 02/11/21 23:21 36.5 C 78 14 159/84 H 98 PG Care Time/CCT Total # of Minutes Spent Total Time Spent with Patient: Total time spent is greater than 50% in coordination of care (as documented) at patient's floor/unit and/or counseling patient: Coding Level of Care Code 57357 Subseq Hosp Care Lvl 3 Diagnoses Abdominal pain in female patient R10.9
[2021-02-12 08:40] LABS: Estimated Average Glucose 180 mg/dl; Hemoglobin A1C 7.9 % (4.5-5.6)
--- NOTE | 2021-02-16 08:13 | Discharge Summary ---
Date of Service February 16, 2021 Principal Diagnosis Abdominal Pain Discharge Exam awake/alert Respiratory normal respiratory effort Gastrointestinal (Abdomen) Inspection/Auscultation: abdomen not distended Percussion/Palpation: abdomen soft; abdomen nontender Discharge Data Allergies Allergy/AdvReac Type Severity Reaction Status Date / Time mold AdvReac Mild HEAD Verified 02/11/21 09:42 PRESSURE Yeast AdvReac Mild dry skin Verified 02/11/21 09:42 amoxicillin AdvReac Unknown diarrhea Verified 02/11/21 09:42 dust AdvReac Sneezing Uncoded 02/11/21 09:42 Ordered Studies 02/11/21 03:22 US gallbladder Urgent 02/11/21 04:33 CT abd pelvis IV con only Urgent Hospital Course (1) Abdominal pain in female patient: This is a 55y F who presented to the [facility] ED on 02/11/21 with complaints of abdominal pain. Abdominal pain was generalized in the ED, worsening in severity, and associated with nausea/vomiting. A CT a/p was performed revealing her appendix measures up to 8 mm in diameter, without any periappendiceal inflammatory change to suggest acute appendicitis. A RUQ US obtained was unremarkable. Laboratory data overall unremarkable. Due to patient's symptoms she was admitted overnight for observation and supportive care. A HIDA scan was obtained for further evaluation that showed an EF of 98%. This was discussed with patient as she may have an element of biliary hyperkinesia attributing to her symptoms. Patient remained NPO for bowel rest. On the AM of 02/12 patient reported vast improvement in her symptoms. A diet was initiated of which she tolerated without issues. AM labs unremarkable. Plan for patient to report to outpatient clinic in 1 week to follow up on her hospitalization and to discuss possible treatment options for her biliary hyperkinesia. Total Time Total Time Spent Total Time Spent (In Minutes): 10 Discharge Plan Discharge Items Patient Disposition: Home - Self-Care Reason For Visit: ABDOMINAL PAIN Discharge Diagnosis: abdominal pain Condition on Discharge: Good Activity: Per Instructions section Lifting: Gradually increase as tolerated Bathing: No limitations Exercise/Sports: Gradually increase as tolerated Driving/Machine Use: No limitations Non-emergency contact: Surgeon Call non-emergency contact if: you have any medication questions, your symptoms worsen, you have a fever and your temperature is above 101.5 Follow-up/Referrals: Viral Pennington, [Surgeon] - 02/17/21 1:15 pm (Please call to schedule follow up in clinic within 1 week) PCP,NO [Primary Care Provider] - Diet: Low Fiber Addtl Attending Provider Instructions: Pending Studies at Discharge: No Stand-Alone Forms: My [facility] Medications and DC Order Prescriptions: New dicyclomine 10 mg capsule 20 mg PO .every 6 hours PRN (Reason: abdominal discomfort) 7 Days Qty: 42 RF: 0 ondansetron HCl [Zofran] 4 mg tablet 4 mg PO Q8H PRN (Reason: nausea and vomiting) 7 Days Qty: 21 RF: 0 Continued sertraline 50 mg tablet 50 mg PO PM RF: 0 metformin 500 mg tablet 1,000 mg PO QPM RF: 0 levothyroxine 100 mcg tablet 100 mcg PO QAM RF: 0 atorvastatin 40 mg tablet 40 mg PO PM RF: 0 lisinopril 2.5 mg Tablet 2.5 mg PO HS RF: 0 Januvia 100 mg Tablet 100 mg PO QAM RF: 0 cholecalciferol (vitamin D3) [Vitamin D3] 125 mcg (5,000 unit) Tablet 125 mcg PO HS RF: 0 diclofenac sodium [Voltaren] 1 % Gel 2 g TOPICAL QID PRN (Reason: Pain) RF: 0 triamcinolone acetonide 0.1 % Cream 1 applic TOPICAL HS PRN (Reason: Itching) RF: 0 ibuprofen [Advil] 200 mg Tablet 400 mg PO BID PRN (Reason: Pain) RF: 0 loratadine [Claritin] 10 mg Tablet 10 mg PO DAILY PRN (Reason: Allergy Symptoms) RF: 0 lorazepam 0.5 mg Tablet 0.5 mg PO DAILY PRN (Reason: Anxiety) RF: 0 fluticasone propionate [Flonase Allergy Relief] 50 mcg/actuation [place],Suspension 2 spray INTRANASAL DAILY PRN (Reason: sinus congestion) RF: 0 Discharge Orders: Discharge Order (Routine); Ordered 02/12/21 Ordered By: Beverly Miranda/Other Patient Handouts: Abdominal Pain, Low-Fiber Diet, Managing Type 2 Diabetes, Managing Diabetes: The A1C Test, Dicyclomine tablets or capsules, Ondansetron oral dissolving tablet Admission Data Admit Date/Time: 02/11/21 07:28 Attending Provider: Viral Pennington Admit Provider: Viral Pennington Primary Care Provider: PCP,NO Other Interventions: Discharge Summary Assessment (RN) Last Done: 02/12/21 10:19 Coding Level of Care Code D/C Day Management <30 mins Diagnoses Abdominal pain in female patient R10.9
== END 2021-02-12 12:23 | disposition home or self-care (01) ==
LOC: ED 03:09 → 3N 03:09

== ENCOUNTER 2022-04-18 17:46 | Inpatient (IN) ==
[2022-04-18] MEDS ORDERED: SODIUM CHLORIDE 0.9% 1000ML 1,000 ML IV STA (17:57)
[2022-04-18] MEDS ORDERED: dilTIAZem HCl 5 MG/ML 5 ML VIAL IV STA (17:57)
[2022-04-18] MEDS ORDERED: MAGNESIUM SULFATE / D5W 1 GM/100 ML BAG IV STA (17:58)
[2022-04-18 18:11] LABS: Basophils # (auto) 0.04 K/uL (0-0.2); Basophils % (auto) 0.5 %; Eosinophils # (auto) 0.36 K/uL (0-0.5); Eosinophils % (auto) 4.2 %; Hematocrit (blood only) 40.3 % (37-47); Hemoglobin 13.5 g/dL (12.0-16.0); Immature Granulocytes # (auto) 0.02 K/uL (0.00-0.02); Immature Granulocytes % (auto) 0.2 %; Lymphocytes # (auto) 2.39 K/uL (1.2-3.4); Lymphocytes % (auto) 27.7 %; Mean Corpuscular Hemoglobin 28.7 pg (25-34); Mean Corpuscular Hgb Conc 33.5 g/dL (32-36); Mean Corpuscular Volume 85.6 fL (80-100); Mean Platelet Volume 8.9 fL (7.4-10.4); Monocytes # (auto) 0.75 K/uL (0.11-0.59); Monocytes % (auto) 8.7 %; Neutrophils # (auto) 5.06 K/uL (1.4-6.5); Neutrophils % (auto) 58.7 %; Platelet Count 315 K/uL (130-400); RDW Coefficient of Variation 12.6 % (11.5-14.5); RDW Standard Deviation 40.1 fL (36.4-46.3); Red Blood Count 4.71 M/uL (4.2-5.4); White Blood Count 8.62 K/uL (4.8-10.8)
[2022-04-18 18:23] LABS: INR 0.9 (0.9-1.1); Partial Thromboplastin Ratio 0.9; Partial Thromboplastin Time 24.5 Seconds (21.0-31.0); Prothrombin Time 10.1 Seconds (9.0-12.0)
--- NOTE | 2022-04-18 18:28 | Emergency Department Note ---
Impression & Plan Atrial fibrillation with rapid ventricular response, Heart palpitations ED Provider Note NAME: JUSTIN RODRIGUEZ AGE: 56 SEX: F : 1965 ARRIVES VIA: Walk-In INFORMANT: Patient, ED PROVIDER(S): Mario Tim DO CHIEF COMPLAINT: Palpitations HPI: The patient is a 56-year-old female who presented to the emergency department for an evaluation of palpitations. The patient describes palpitations with heart racing. She describes dizziness. She denies having any syncope. She does feel lightheaded when she stands. She denies having any chest pain. She denies having any difficulty breathing at rest. She is had no lower extremity swelling or pain. The patient states she had a similar episode 2 weeks ago. That episode resolved spontaneously. She is not been seen by her family doctor recently for the symptoms but she was seen once a long time ago and no definite diagnosis was made. She has no history of atrial fibrillation or SVT. The patient states that she does have a history of thyroid issues. She states she is been compliant with all of her outpatient medications. ROS: See above HPI for pertinent positives & negatives. A total of 10 systems reviewed and were otherwise negative. PAST MEDICAL HISTORY: See Below PAST SURGICAL HISTORY: See Below FAMILY HISTORY: See Below SOCIAL HISTORY: See Below HOME MEDICATIONS: See Below ALLERGIES: See Below VITALS: See Below PHYSICAL EXAMINATION: GENERAL: The patient is awake and alert. The patient is somewhat anxious appearing. EYES: The conjunctivae are clear. The pupils are round and reactive. EARS, NOSE, MOUTH AND THROAT: The nose is without any evidence of any deformity. Mucous membranes are moist. Tongue is midline. NECK: The neck is nontender and supple. RESPIRATORY: Normal respiratory effort is noted there is no evidence of wheezing rhonchi or rales CARDIOVASCULAR: Tachycardic and irregular heart sounds are noted auscultation. There is no definite murmur. GASTROINTESTINAL: The abdomen is soft. Abdomen is nontender. MUSCULOSKELETAL/EXTREMITIES: There is no evidence of gross deformity full range of motion is noted in the hips and shoulders. SKIN: There is no obvious evidence of any rash. There are no petechiae, pallor or cyanosis noted. NEUROLOGIC: Patient is awake alert and oriented x3 strength is symmetric patellar reflexes are 2+ bilaterally MEDICAL DECISION MAKING: The patient is a 56-year-old female who presented to the emergency department for palpitations. The patient was found to be in atrial fibrillation with RVR. This would be a new diagnosis for her. She was controlled with IV fluids and IV Cardizem. On reevaluation she was having runs of sinus rhythm but also continued A. fib with RVR. The patient was reevaluated multiple times. Because of her symptomatology as well as her ongoing dysrhythmia I discussed her case with the on-call [facility] hospitalist group. They have agreed to evaluate the patient in the emergency department for further management and disposition. The patient's symptoms significantly improved when her rate controlled. Triage Nursing notes reviewed. Prior medical records reviewed Vital Signs: reviewed and remarkable for elevated blood pressure and tachycardia. Differential diagnosis: Premature contractions, electrolyte abnormality, cardiac dysrhythmia, thyroid dysfunction, pulmonary embolism, infection, gastrointestinal, as well as other pathologies. ER treatment provided: See below Diagnostics interpreted by me: ECG: EKG was obtained in the emergency department. My interpretation is atrial fibrillation with rapid ventricular response at [address] segment depressions were noted especially in the inferior and lateral leads. This was compared to a tracing from February 11, 2021. The changes are new compared to the previous tracing. Cardiac Monitoring: An order was placed for continuous cardiac monitoring. The monitor shows a rate of 88 bpm with atrial fibrillation Laboratory studies: As stated above and show below. Imaging studies: See below Consultation(s): I discussed this case with Dr. Snow who is on-call for the [facility] hospitalist group. Past Med/Surg History Medical History Anxiety and depression Arthritis Atypical ductal hyperplasia of left breast Back problem occasional back pain Benign positional vertigo Diabetes mellitus, type 2 Fatty liver Gastritis RECENT DX WITH EGD GERD (gastroesophageal reflux disease) Hiatal hernia Hyperlipidemia Hypertension Hypothyroidism Kidney disease reason for lisinopril per patient Morbid obesity Sleep apnea "mild"/no device Surgical History H/O cervical biopsy History of anesthesia reaction WITH RECENT EGD 2020 "COULD NOT BREATHE AND WAS CHOKING D/T SALIVA ON VOCAL CORD". ANESTHESIA CHARTED "laryngospasm". History of esophagogastroduodenoscopy (EGD) History of repair of hiatal hernia Laparoscipic Hiatal Hernia Repair Dr. Pennington 04/01/[address] Pennington 04/01/2021 Hx of colonoscopy Hx of lumpectomy left breast--benign S/P sinus surgery S/P tonsillectomy [place] teeth removed Family History (Updated 04/18/22 @ 19:58 by Dayron Snow MD) Father Heart disease Myocardial infarction Mother Heart disease Breast cancer Dx in 80s Atrial fibrillation Grandmother Cancer Hypertension Grandmother (Maternal) Colorectal cancer Grandmother (Paternal) Diabetes Other No family history of adverse response to anesthesia Denies family history of Ovarian cancer Social History Smoking Status: Never smoker Second Hand Exposure: No; Hx Alcohol Use: Yes Alcohol type: wine Preferred Language: South African Communication Ability: Effective Visual Impairment: No Limitations Clinical Psychologist Licensed Required: No Beliefs That Will Affect Care: None marital status: Current Living Situation: Spouse current occupational status: unemployed 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 Feels Safe at Home: Yes Assistive Devices: Glasses Allergies Allergies Allergy/AdvReac Type Severity Reaction Status Date / Time amoxicillin AdvReac Intermediate diarrhea Verified 05/12/21 09:42 mold AdvReac Mild HEAD Verified 05/12/21 09:42 PRESSURE Yeast AdvReac Mild dry skin Verified 05/12/21 09:42 dust AdvReac Mild Sneezing Uncoded 05/12/21 09:42 Home Meds Home Medications Medication Instructions Recorded Confirmed atorvastatin 40 mg tablet 40 mg PO PM tab 07/23/19 08/23/21 levothyroxine 100 mcg tablet 100 mcg PO QAM tab 07/23/19 08/23/21 metformin 500 mg tablet 500 mg PO BID 12/30/19 08/23/21 sertraline 50 mg tablet 50 mg PO PM tab 12/30/19 08/23/21 loratadine 10 mg tablet (Claritin) 10 mg PO DAILY PRN 01/02/20 08/23/21 fluticasone propionate 50 2 spray INTRANASAL DAILY PRN 01/16/20 08/23/21 mcg/actuation nasal spray,suspension (Flonase Allergy Relief) lorazepam 0.5 mg tablet 0.5 mg PO DAILY PRN 01/16/20 08/23/21 cholecalciferol (vitamin D3) 125 125 mcg PO HS 09/01/20 08/23/21 mcg (5,000 unit) tablet (Vitamin D3) diclofenac sodium 1 % topical gel 2 g TOPICAL QID PRN 09/01/20 08/23/21 (Voltaren) ibuprofen 200 mg tablet (Advil) 400 mg PO BID PRN 09/01/20 08/23/21 lisinopril 2.5 mg tablet 2.5 mg PO QPM 09/01/20 08/23/21 sitagliptin 100 mg tablet (Januvia) 100 mg PO QAM 09/01/20 08/23/21 triamcinolone acetonide 0.1 % 1 applic TOPICAL HS PRN 09/01/20 08/23/21 topical cream Previous Rx's Medication Instructions Recorded dicyclomine 10 mg capsule 20 mg PO BID PRN 30 Days #60 cap 02/17/21 ondansetron HCl 4 mg tablet 4 mg PO Q8H PRN #10 tab 04/01/21 (Zofran) Results & Data (ED) Vital Signs Vital Signs - 24 hr 04/18/22 17:47 04/18/22 18:04 04/18/22 18:13 Temperature 36.9 C Temperature Source Oral Pulse Rate 145 H 117 H Pulse Rate [Right Finger] Pulse Rate from SpO2 Sensor 125 H Pulse Rhythm [Right Finger] Pulse Strength [Right Finger] Respiratory Rate 18 13 Respiratory Effort / Characteristics Non-Labored Spontaneous Non-Labored Spontaneous Respiratory Depth Normal Normal Respiratory Pattern Regular Regular Blood Pressure 160/117 H 154/100 H Blood Pressure [Right Arm] Blood Pressure Mean 131 118 Blood Pressure Mean [Right Arm] Blood Pressure Position Sitting Pulse Oximetry 97 100 Oxygen Delivery Method Room Air Sepsis Recent Fever Within 48 Hours No Sepsis New/Unexplained Change in Mental Status No Sepsis Action Taken by Nursing No Action Required 04/18/22 18:15 04/18/22 18:31 04/18/22 20:02 Temperature Temperature Source Pulse Rate 108 H Pulse Rate [Right Finger] 103 H 88 Pulse Rate from SpO2 Sensor 98 H Pulse Rhythm [Right Finger] Irregular Pulse Strength [Right Finger] Normal Respiratory Rate 18 18 18 Respiratory Effort / Characteristics Non-Labored Non-Labored Respiratory Depth Normal Normal Respiratory Pattern Blood Pressure 131/79 Blood Pressure [Right Arm] 131/79 167/96 H Blood Pressure Mean 96 Blood Pressure Mean [Right Arm] 96 119 Blood Pressure Position Pulse Oximetry 99 99 98 Oxygen Delivery Method Room Air Sepsis Recent Fever Within 48 Hours Sepsis New/Unexplained Change in Mental Status Sepsis Action Taken by Snf Medications Current Medication List: was personally reviewed by me Laboratory Data Attestation: I reviewed the patient's lab results. Result diagrams: 04/18/22 17:59 04/18/22 17:59 Lab Results 04/18/22 04/18/22 04/18/22 Range/Units 17:59 17:59 17:59 WBC 8.62 (4.8-10.8) K/uL RBC 4.71 (4.2-5.4) M/uL Hgb 13.5 (12.0-16.0) g/dL Hct 40.3 (37-47) % MCV 85.6 (80-100) fL MCH 28.7 (25-34) pg MCHC 33.5 (32-36) g/dL RDW Std Deviation 40.1 (36.4-46.3) fL RDW Coeff of [place] 12.6 (11.5-14.5) % Plt Count 315 (130-400) K/uL MPV 8.9 (7.4-10.4) fL Immature Gran % (Auto) 0.2 % Neut % (Auto) 58.7 % Lymph % (Auto) 27.7 % Garza % (Auto) 8.7 % Eos % (Auto) 4.2 % Baso % (Auto) 0.5 % Neut # (Auto) 5.06 (1.4-6.5) K/uL Lymph # (Auto) 2.39 (1.2-3.4) K/uL Garza # (Auto) 0.75 H (0.11-0.59) K/uL Eos # (Auto) 0.36 (0-0.5) K/uL Baso # (Auto) 0.04 (0-0.2) K/uL Immature Gran # (Auto) 0.02 (0.00-0.02) K/uL PT 10.1 (9.0-12.0) Seconds INR 0.9 (0.9-1.1) APTT 24.5 (21.0-31.0) Seconds PTT Ratio 0.9 Sodium 136 (136-145) mmol/L Potassium 3.7 (3.5-5.1) mmol/L Chloride 103 (98-107) mmol/L Carbon Dioxide 24 (21-32) mmol/L Anion Gap 9 (3-11) BUN 17 (6-23) mg/dl Creatinine 0.87 (0.6-1.2) mg/dl Est Cr Clr Drug Dosing 83.9 ml/min Est GFR ( Amer) 85.7 ml/min Est GFR (Non-Af Amer) 74.0 ml/min BUN/Creatinine Ratio 19.5 (10-20) Glucose 293 H (70-99(Fasting)) mg/dl Calcium 9.3 (8.5-10.1) mg/dl Magnesium 1.9 (1.7-2.4) mg/dl Total Bilirubin 0.4 (0.2-1.0) mg/dl AST 24 (13-39) U/L ALT 38 (7-52) U/L Alkaline Phosphatase 120 H (34-104) U/L Troponin I High Sens 3.3 (0-14) pg/ml Total Protein 7.1 (6.0-8.3) gm/dl Albumin 4.2 (3.4-5.0) gm/dl Globulin 2.9 (2.5-4.0) gm/dl Albumin/Globulin Ratio 1.4 (0.9-2) TSH (0.300-4.500) uIu/ml SARS-CoV-2, RNA, NAAT (NEGATIVE) 04/18/22 04/18/22 Range/Units 17:59 18:10 WBC (4.8-10.8) K/uL RBC (4.2-5.4) M/uL Hgb (12.0-16.0) g/dL Hct (37-47) % MCV (80-100) fL MCH (25-34) pg MCHC (32-36) g/dL RDW Std Deviation (36.4-46.3) fL RDW Coeff of [place] (11.5-14.5) % Plt Count (130-400) K/uL MPV (7.4-10.4) fL Immature Gran % (Auto) % Neut % (Auto) % Lymph % (Auto) % Garza % (Auto) % Eos % (Auto) % Baso % (Auto) % Neut # (Auto) (1.4-6.5) K/uL Lymph # (Auto) (1.2-3.4) K/uL Garza # (Auto) (0.11-0.59) K/uL Eos # (Auto) (0-0.5) K/uL Baso # (Auto) (0-0.2) K/uL Immature Gran # (Auto) (0.00-0.02) K/uL PT (9.0-12.0) Seconds INR (0.9-1.1) APTT (21.0-31.0) Seconds PTT Ratio Sodium (136-145) mmol/L Potassium (3.5-5.1) mmol/L Chloride (98-107) mmol/L Carbon Dioxide (21-32) mmol/L Anion Gap (3-11) BUN (6-23) mg/dl Creatinine (0.6-1.2) mg/dl Est Cr Clr Drug Dosing ml/min Est GFR ( Amer) ml/min Est GFR (Non-Af Amer) ml/min BUN/Creatinine Ratio (10-20) Glucose (70-99(Fasting)) mg/dl Calcium (8.5-10.1) mg/dl Magnesium (1.7-2.4) mg/dl Total Bilirubin (0.2-1.0) mg/dl AST (13-39) U/L ALT (7-52) U/L Alkaline Phosphatase (34-104) U/L Troponin I High Sens (0-14) pg/ml Total Protein (6.0-8.3) gm/dl Albumin (3.4-5.0) gm/dl Globulin (2.5-4.0) gm/dl Albumin/Globulin Ratio (0.9-2) TSH 1.122 (0.300-4.500) uIu/ml SARS-CoV-2, RNA, NAAT NEGATIVE (NEGATIVE) Administered Medications Discontinued Medications Diltiazem HCl (Diltiazem Hcl 5 Mg/Ml 5 Ml Vial) 20 mg IV NOW STA Stop: 04/18/22 17:58 Last Admin: 04/18/22 18:10 Dose: 20 mg Documented by: [id number] Cosigned by: [id number] Sodium Chloride (Nss 1000ml) 1,000 mls @ 999 mls/hr IV .Q1H1M STA Stop: 04/18/22 18:57 Last Infusion: 04/18/22 19:14 Dose: 0 mls/hr Documented by: [id number] Admin: 04/18/22 18:10 Dose: 999 mls/hr Documented by: [id number] Magnesium Sulfate/Dextrose (Magnesium Sulfate / D5w) 1 gm in 100 mls @ 100 mls/hr IV NOW STA Stop: 04/18/22 18:57 Last Infusion: 04/18/22 19:14 Dose: 0 mls/hr Documented by: [id number] Admin: 04/18/22 18:10 Dose: 100 mls/hr Documented by: [id number] Imaging Data Radiologist's Impression: Chest X-Ray 04/18/22 17:57 XR chest 1V portable CLINICAL HISTORY: Dysrhythmia TECHNIQUE: Single frontal radiograph of the chest was obtained. Comparison: None available at the time of this dictation. FINDINGS: No lines and tubes are seen. The cardiomediastinal silhouette is normal. The lungs are clear. No evidence of pleural effusion or pneumothorax. IMPRESSION: No acute chest disease. ACT 112: Negative or not required by law. Electronically signed by: Rohan Fontaine M.D. 04/18/2022 6:24 PM Discharge Plan Visit Data Chief Complaint: Arrhythmia/Palpitations Stated Complaint: TYPE 2 DIABETIC, DIZZINESS, HEART PALPITATIONS ED Provider: Mario Tim Discharge Problem: Atrial fibrillation with rapid ventricular response, Heart palpitations Patient Disposition: Being Evaluated by Hospitalist Discharge Instructions Interventions: ED Discharge Assessment Last Done: 04/18/22 20:03 Forms Stand Alone Forms: [employer] Prescriptions Prescriptions: No Action dicyclomine 10 mg capsule 20 mg PO BID PRN (Reason: abdominal discomfort) 30 Days Qty: 60 RF: 2 sertraline 50 mg tablet 50 mg PO PM RF: 0 metformin 500 mg tablet 500 mg PO BID RF: 0 levothyroxine 100 mcg tablet 100 mcg PO QAM RF: 0 atorvastatin 40 mg tablet 40 mg PO PM RF: 0 lisinopril 2.5 mg Tablet 2.5 mg PO QPM RF: 0 Januvia 100 mg Tablet 100 mg PO QAM RF: 0 cholecalciferol (vitamin D3) [Vitamin D3] 125 mcg (5,000 unit) Tablet 125 mcg PO HS RF: 0 diclofenac sodium [Voltaren] 1 % Gel 2 g TOPICAL QID PRN (Reason: Pain) RF: 0 triamcinolone acetonide 0.1 % Cream 1 applic TOPICAL HS PRN (Reason: Itching) RF: 0 ibuprofen [Advil] 200 mg Tablet 400 mg PO BID PRN (Reason: Pain) RF: 0 loratadine [Claritin] 10 mg Tablet 10 mg PO DAILY PRN (Reason: Allergy Symptoms) RF: 0 lorazepam 0.5 mg Tablet 0.5 mg PO DAILY PRN (Reason: Anxiety) RF: 0 fluticasone propionate [Flonase Allergy Relief] 50 mcg/actuation [place],Suspension 2 spray INTRANASAL DAILY PRN (Reason: sinus congestion) RF: 0 ondansetron HCl [Zofran] 4 mg tablet 4 mg PO Q8H PRN (Reason: nausea and vomiting) Qty: 10 RF: 0 Referrals Referrals: Tai Velazquez DO [Primary Care Provider] -
[2022-04-18 18:34] LABS: Troponin I High Sensitivity 3.3 pg/ml (0-14)
[2022-04-18 18:38] LABS: Albumin Globulin Ratio 1.4 (0.9-2); Albumin Level 4.2 gm/dl (3.4-5.0); BUN Creatinine Ratio 19.5 (10-20); Bilirubin,Total 0.4 mg/dl (0.2-1.0); Calcium 9.3 mg/dl (8.5-10.1); Creatinine Clr Calc Pharmacy 83.9 ml/min; Est GFR (African American) 85.7 ml/min; Globulin 2.9 gm/dl (2.5-4.0); Magnesium 1.9 mg/dl (1.7-2.4); Potassium 3.7 mmol/L (3.5-5.1); Total Protein 7.1 gm/dl (6.0-8.3)
--- NOTE | 2022-04-18 20:04 | History & Physical Report ---
Date of Service April 18, 2022 Assessment & Plan (1) Atrial fibrillation with RVR: Plan: New onset. Paroxsymal with episodes of normal sinus and afib even during my interview with her. In sinus, rate was steady ~90 bpm. In afib, up to 130s. - Rate control with metoprolol 25 mg PO BID + metoprolol 10 mg IV PRN for HR > 110 - CHADS-Vasc 2-3 (F, DM, and possibly some low-level HTN) -> Open to anticoagulation, but would like to think about it tonight. - Echo in the AM - Replete K+, and Mg2+ - Cardiology consult as she might benefit from rhythm control strategy if her rhythm keeps going back and forth between sinus and afib (2) Type 2 diabetes mellitus: Plan: Last A1c 7.9% in 2020. Per her, her last A1c was much lower. - Hold oral meds - Sliding scale insulin - Repeat A1c (3) HTN (hypertension): Plan: As above, she reports she actually does not have HTN, and is just on lisinopril for kidney protection. - Continue lisinopril (4) Anxiety disorder: Plan: Anxious affect on presentation. - Continue home sertraline - Lorazepam PRN (5) Hypothyroid: Plan: TSH was 1.1 this admission. No signs/symptoms of hypo-/hyperthyroidism other than her new afib. - Continue home Synthroid 100 mcg (6) DVT prophylaxis: Plan: SCDs - Will add anticoagulation for her afib if she is willing History of Present Illness Primary Care Provider: Tai Velazquez DO 56yo F w/ hx of DM who presents with new onset afib with RVR. She notes that approx. 2 weeks ago, on April 05, she had a day where she felt warm, flush, mildly dizzy, and had a fluttering sensation in her chest. She was feeling high amounts of stress at the time, and she prayed and felt like the episode went away over the course of several hours. By the next day, it was gone. She notes some prior episodes like this over the last 2 years, but they have all been very mild, and she thought they might just be anxiety. Today, she had a similar feeling, and she presented to the ER. She was found to be in afib with HR in the 145 bpm range. She was given diltiazem and magnesium, and her rhythm has been switching between sinus and afib since then. Allergies Allergy/AdvReac Type Severity Reaction Status Date / Time amoxicillin AdvReac Intermediate diarrhea Verified 05/12/21 09:42 mold AdvReac Mild HEAD Verified 05/12/21 09:42 PRESSURE Yeast AdvReac Mild dry skin Verified 05/12/21 09:42 dust AdvReac Mild Sneezing Uncoded 05/12/21 09:42 Home Medications Medication Instructions Recorded Confirmed Type atorvastatin 40 mg tablet 40 mg PO PM tab 07/23/19 08/23/21 History levothyroxine 100 mcg tablet 100 mcg PO QAM tab 07/23/19 08/23/21 History metformin 500 mg tablet 500 mg PO BID 12/30/19 08/23/21 History sertraline 50 mg tablet 50 mg PO PM tab 12/30/19 08/23/21 History loratadine 10 mg tablet (Claritin) 10 mg PO DAILY PRN 01/02/20 08/23/21 History fluticasone propionate 50 2 spray INTRANASAL DAILY PRN 01/16/20 08/23/21 History mcg/actuation nasal spray,suspension (Flonase Allergy Relief) lorazepam 0.5 mg tablet 0.5 mg PO DAILY PRN 01/16/20 08/23/21 History cholecalciferol (vitamin D3) 125 125 mcg PO HS 09/01/20 08/23/21 History mcg (5,000 unit) tablet (Vitamin D3) diclofenac sodium 1 % topical gel 2 g TOPICAL QID PRN 09/01/20 08/23/21 History (Voltaren) ibuprofen 200 mg tablet (Advil) 400 mg PO BID PRN 09/01/20 08/23/21 History lisinopril 2.5 mg tablet 2.5 mg PO QPM 09/01/20 08/23/21 History sitagliptin 100 mg tablet (Januvia) 100 mg PO QAM 09/01/20 08/23/21 History triamcinolone acetonide 0.1 % 1 applic TOPICAL HS PRN 09/01/20 08/23/21 History topical cream dicyclomine 10 mg capsule 20 mg PO BID PRN 30 Days #60 cap 02/17/21 08/23/21 Rx ondansetron HCl 4 mg tablet 4 mg PO Q8H PRN #10 tab 04/01/21 08/23/21 Rx (Zofran) Past Med/Surg History Medical History Anxiety and depression Arthritis Atypical ductal hyperplasia of left breast Back problem occasional back pain Benign positional vertigo Diabetes mellitus, type 2 Fatty liver Gastritis RECENT DX WITH EGD GERD (gastroesophageal reflux disease) Hiatal hernia Hyperlipidemia Hypertension Hypothyroidism Kidney disease reason for lisinopril per patient Morbid obesity Sleep apnea "mild"/no device Surgical History H/O cervical biopsy History of anesthesia reaction WITH RECENT EGD 2020 "COULD NOT BREATHE AND WAS CHOKING D/T SALIVA ON VOCAL CORD". ANESTHESIA CHARTED "laryngospasm". History of esophagogastroduodenoscopy (EGD) History of repair of hiatal hernia Laparoscipic Hiatal Hernia Repair Dr. Pennington 04/01/[address]21 [address] Dr. Pennington 04/01/2021 Hx of colonoscopy Hx of lumpectomy left breast--benign S/P sinus surgery S/P tonsillectomy [place] teeth removed Family History (Updated 04/18/22 @ 19:58 by Dayron Snow MD) Father Heart disease Myocardial infarction Mother Heart disease Breast cancer Dx in 80s Atrial fibrillation Grandmother Cancer Hypertension Grandmother (Maternal) Colorectal cancer Grandmother (Paternal) Diabetes Other No family history of adverse response to anesthesia Denies family history of Ovarian cancer Social History Smoking Status: Never smoker Second Hand Exposure: No; Hx Alcohol Use: Yes Alcohol type: wine Preferred Language: Romansh Communication Ability: Effective Visual Impairment: No Limitations 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: No Beliefs That Will Affect Care: None marital status: Current Living Situation: Spouse current occupational status: unemployed 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 Feels Safe at Home: Yes Assistive Devices: Glasses Review of Systems Review of Systems: All systems reviewed & are unremarkable except as noted in HPI & below Physical Exam Constitutional: WD/WN, vitals as above Eyes: EOM intact bilaterally; no conjunctival abnormality ENMT: external ear and nose normal, oropharynx normal Neck: trachea midline, no thyromegaly normal visual inspection Respiratory: normal respiratory effort, lungs clear to auscultation no respiratory distress Cardiovascular: RRR, no murmur, no edema Gastrointestinal (Abdomen): Inspection/Auscultation: abdomen normal to inspection; abdomen not distended Musculoskeletal: no cyanosis or clubbing, extremities motor strength 5/5 Skin: no rashes, warm and dry Neurologic: moves all extremities and awake Psychiatric: Orientation: alert, oriented to person and cooperative Results & Data Results & Data ([facility]) Vital Signs (Past 12 Hours) Vital Signs Temp Pulse Pulse Resp BP BP Pulse Ox 04/18/22 18:31 103 H 18 131/79 99 04/18/22 18:15 108 H 18 131/79 99 04/18/22 18:13 117 H 13 154/100 H 100 04/18/22 17:47 36.9 C 145 H 18 160/117 H 97 Code Status & VTE Plan VTE Prophylaxis Plan VTE Prophylaxis will be ordered: Yes PG Care Time/CCT Total # of Minutes Spent Total Time Spent with Patient: Total time spent is greater than 50% in coordination of care (as documented) at patient's floor/unit and/or counseling patient: Coding Level of Care Code 32143 Initial Inpt Care Lvl 3 Diagnoses Atrial fibrillation with RVR I48.91 Type 2 diabetes mellitus E11.9 HTN (hypertension) I10 Anxiety disorder F41.9 Hypothyroid E03.9 DVT prophylaxis Z29.9
[2022-04-18] MEDS ORDERED: ACETAMINOPHEN 325 MG TAB PO PRN (20:30)
[2022-04-18] MEDS ORDERED: GLUCOSE 40% GEL 15 GM TUBE PO PRN (20:30)
[2022-04-18] MEDS ORDERED: DEXTROSE 50% 50 ML SYRINGE IV PRN (20:30)
[2022-04-18] MEDS ORDERED: METOPROLOL TARTRATE 1 MG/ML VIAL IV PRN (20:30)
[2022-04-18] MEDS ORDERED: GLUCOSE 10 TABS/TUBE PO PRN (20:30)
[2022-04-18] MEDS ORDERED: ONDANSETRON INJ 2 MG/ML 2 ML VIAL IV PRN (20:30)
[2022-04-18] MEDS ORDERED: LORazepam 0.5 MG TAB PO PRN (20:30)
[2022-04-18] MEDS ORDERED: GLUCAGON FOR INJ 1 MG VIAL SQ PRN (20:30)
[2022-04-18] MEDS ORDERED: CARBOHYDRATES FOR HYPOGLYCEMIA PO PRN (20:30)
[2022-04-18] MEDS ORDERED: ATORVASTATIN 40 MG TAB PO SCH (21:00)
[2022-04-18] MEDS ORDERED: lisinopril 2.5 MG TAB PO SCH (21:00)
[2022-04-18] MEDS ORDERED: SERTRALINE HCL 50 MG TABLET PO SCH (21:00)
[2022-04-18] MEDS: INSULIN ASPART PER UNIT SC SCH (21:08)
[2022-04-18] MEDS: METOPROLOL TARTRATE 25 MG TAB PO SCH (22:31)
[2022-04-19] MEDS ORDERED: LEVOTHYROXINE SODIUM 100 MCG TABLET PO SCH (06:30)
[2022-04-19 07:03] LABS: Hematocrit (blood only) 38.3 % (37-47); Hemoglobin 12.6 g/dL (12.0-16.0); Mean Corpuscular Hemoglobin 28.2 pg (25-34); Mean Corpuscular Hgb Conc 32.9 g/dL (32-36); Mean Corpuscular Volume 85.7 fL (80-100); Platelet Count 303 K/uL (130-400); RDW Standard Deviation 40.7 fL (36.4-46.3); Red Blood Count 4.47 M/uL (4.2-5.4); White Blood Count 6.69 K/uL (4.8-10.8)
[2022-04-19 07:40] LABS: Estimated Average Glucose 148 mg/dl; Hemoglobin A1C 6.8 % (4.5-5.6)
[2022-04-19 07:43] LABS: BUN Creatinine Ratio 13.5 (10-20); Calcium 8.7 mg/dl (8.5-10.1); Creatinine Clr Calc Pharmacy 99.8 ml/min; Est GFR (African American) 104.2 ml/min; Est GFR (Non-African American) 89.9 ml/min; Magnesium 2.2 mg/dl (1.7-2.4)
[2022-04-19] MEDS: INSULIN ASPART PER UNIT SC SCH ×2 (08:28→12:10)
[2022-04-19] MEDS: METOPROLOL TARTRATE 25 MG TAB PO SCH (08:29)
--- NOTE | 2022-04-19 08:38 | Magnetic Resonance Report ---
MR brain wo con HISTORY: 56 years-old Female new neurologic symtoms acute dizziness with strokelike symptoms COMPARISON: None TECHNIQUE: Multiplanar multisequence MRI of the brain was obtained without the use of IV contrast. FINDINGS: The director museum or zoo localizer images demonstrate no gross extracranial abnormality. There is no restricted diff usion to suggest acute or subacute infarct. Degenerative changes of the imaged cervical spine. [place] e structures are otherwise unremarkable. The study is mildly motion degraded. No acute intracranial h emorrhage, midline shift, abnormal extra-axial collection, hydrocephalus or intracranial mass. Mild n onspecific scattered T2/FLAIR hyperintense foci are noted within the white matter of the cerebral hem ispheres. The cerebral venous sinuses and major arterial flow voids are patent. Mastoid air cells are clear. Mi ld polypoid mucosal thickening of the right maxillary sinus. The skull, orbits and soft tissues are u nremarkable. IMPRESSION: 1. Mildly motion degraded exam without acute intracranial abnormality. 2. Mild T2/FLAIR hyperintense foci throughout the white matter are nonspecific. The primary different ial consideration would include early changes of chronic microvascular ischemic disease. ACT 112: Negative or not required by law. The above report was generated using voice recognition software. It may contain grammatical, syntax o r spelling errors. Electronically signed by: Anand Espinal M.D. 04/19/2022 8:36 AM
--- NOTE | 2022-04-19 09:40 | XCELERA ---
[id number]
--- NOTE | 2022-04-19 11:54 | Discharge Summary ---
Date of Service April 19, 2022 Admission HPI Per Admitting Provider 56yo F w/ hx of DM who presents with new onset afib with RVR. She notes that approx. 2 weeks ago, on April 05, she had a day where she felt warm, flush, mildly dizzy, and had a fluttering sensation in her chest. She was feeling high amounts of stress at the time, and she prayed and felt like the episode went away over the course of several hours. By the next day, it was gone. She notes some prior episodes like this over the last 2 years, but they have all been very mild, and she thought they might just be anxiety. Today, she had a similar feeling, and she presented to the ER. She was found to be in afib with HR in the 145 bpm range. She was given diltiazem and magnesium, and her rhythm has been switching between sinus and afib since then. Principal Diagnosis new onset afib Discharge Exam The patient is awake, alert and oriented 3, well developed and well nourished, normocephalic and atraumatic, lying in bed and in no acute distress. HEENT--PERRL, EOMI, mucous membranes and oropharynx mildly dry Neck--supple. No JVD. No bruits. Thyroid normal, trachea midline, no adenopathy. Heart--normal S1 and S2. No murmurs, rubs or gallops. Lungs--clear bilaterally, no respiratory distress, no accessory muscle use. Abdomen--normal bowel sounds and soft. Mild epigastric and left sided abdominal pain Extremities--no cyanosis or clubbing. No edema. Dermatologic--normal skin turgor, normal color, no abnormal lymph nodes, no rash. Neurologic--cranial nerves II through XII grossly intact. Rheumatologic--normal range of motion. Psychiatric--normal affect. Discharge Data Allergies Allergy/AdvReac Type Severity Reaction Status Date / Time amoxicillin AdvReac Intermediate diarrhea Verified 05/12/21 09:42 mold AdvReac Mild HEAD Verified 05/12/21 09:42 PRESSURE Yeast AdvReac Mild dry skin Verified 05/12/21 09:42 dust AdvReac Mild Sneezing Uncoded 05/12/21 09:42 Consultations 04/18/22 18:55 ED Decision to Admit Stat 04/18/22 20:30 Consult Cardiology Routine Ordered Studies 04/18/22 20:55 MR brain wo con Stat Hospital Course (1) Atrial fibrillation with RVR: New onset. Paroxsymal with episodes of normal sinus and afib even during my interview with her. In sinus, rate was steady ~90 bpm. In afib, up to 130s. - Rate control with metoprolol 25 mg PO BID + metoprolol 10 mg IV PRN for HR > 110 - CHADS-Vasc 2-3 (F, DM, and possibly some low-level HTN) -> Open to anticoagulation, but would like to think about it tonight. - Echo in the AM - Replete K+, and Mg2+ - cardiology evaluated and suggested Eliquis 5mg BID, Flecainide 50mg BID and Metoprolo 25mg daily follow up as outpatient (2) Type 2 diabetes mellitus: Last A1c 7.9% in 2020. Per her, her last A1c was much lower. - Hold oral meds - Sliding scale insulin - Repeat A1c (3) HTN (hypertension): As above, she reports she actually does not have HTN, and is just on lisinopril for kidney protection. - Continue lisinopril (4) Anxiety disorder: Anxious affect on presentation. - Continue home sertraline - Lorazepam PRN (5) Hypothyroid: TSH was 1.1 this admission. No signs/symptoms of hypo-/hyperthyroidism other than her new afib. - Continue home Synthroid 100 mcg (6) DVT prophylaxis: SCDs - Will add anticoagulation for her afib if she is willing Total Time Total Time Spent Total Time Spent (In Minutes): 35 Discharge Plan Discharge Items Patient Disposition: Home - Self-Care Reason For Visit: NEW AFIB WITH RVR Discharge Diagnosis: new onset A fib Activity: Resume your previous activity Non-emergency contact: Primary Care Provider Call non-emergency contact if: you have any medication questions Follow-up/Referrals: Tai Velazquez DO [Primary Care Provider] - Diet: Regular Addtl Attending Provider Instructions: please make 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 Pending Studies at Discharge: No Stand-Alone Forms: [employer], Smoking Cessation Medications and DC Order Prescriptions: New flecainide 50 mg tablet 50 mg PO Q12H Qty: 60 RF: 0 Eliquis 5 mg tablet 5 mg PO BID Qty: 60 RF: 0 metoprolol tartrate 25 mg tablet 25 mg PO DAILY Qty: 30 RF: 0 Continued dicyclomine 10 mg capsule 20 mg PO BID PRN (Reason: abdominal discomfort) 30 Days Qty: 60 RF: 2 sertraline 50 mg tablet 50 mg PO PM RF: 0 metformin 500 mg tablet 500 mg PO BID RF: 0 levothyroxine 100 mcg tablet 100 mcg PO QAM RF: 0 atorvastatin 40 mg tablet 40 mg PO PM RF: 0 lisinopril 2.5 mg Tablet 2.5 mg PO QPM RF: 0 Januvia 100 mg Tablet 100 mg PO QAM RF: 0 cholecalciferol (vitamin D3) [Vitamin D3] 125 mcg (5,000 unit) Tablet 125 mcg PO HS RF: 0 diclofenac sodium [Voltaren] 1 % Gel 2 g TOPICAL QID PRN (Reason: Pain) RF: 0 triamcinolone acetonide 0.1 % Cream 1 applic TOPICAL HS PRN (Reason: Itching) RF: 0 ibuprofen [Advil] 200 mg Tablet 400 mg PO BID PRN (Reason: Pain) RF: 0 loratadine [Claritin] 10 mg Tablet 10 mg PO DAILY PRN (Reason: Allergy Symptoms) RF: 0 lorazepam 0.5 mg Tablet 0.5 mg PO DAILY PRN (Reason: Anxiety) RF: 0 fluticasone propionate [Flonase Allergy Relief] 50 mcg/actuation Oral,Suspension 2 spray INTRANASAL DAILY PRN (Reason: sinus congestion) RF: 0 ondansetron HCl [Zofran] 4 mg tablet 4 mg PO Q8H PRN (Reason: nausea and vomiting) Qty: 10 RF: 0 Discharge Orders: Discharge Order (Routine); Ordered 04/19/22 Ordered By: Aniyah Alberts Admission Data Admit Date/Time: 04/18/22 19:24 Attending Provider: Aniyah Alberts Admit Provider: Dayron Snow Primary Care Provider: Tai Velazquez Other Providers: Dayron Snow ; Rc Ching Coding Level of Care Code D/C DAY MANAGEMENT >30 MINS Diagnoses Atrial fibrillation with RVR I48.91 Type 2 diabetes mellitus E11.9 HTN (hypertension) I10 Anxiety disorder F41.9 Hypothyroid E03.9 DVT prophylaxis Z29.9 Time Spent (min) 35
--- NOTE | 2022-04-19 11:56 | Cardiology Consultation ---
Date of Consultation April 19, 2022 Assessment & Plan (1) Atrial fibrillation with rapid ventricular response: -quite symptomatic on presentation. -has spontaneously converted to sinus rhythm. -would start Eliquis 5 mg b.i.d. for her elevated CHADSVasc score of 3. -suggest an attempt at rhythm control realizing her significant symptoms. -could use metoprolol tartrate 25 mg p.r.n. rapid ventricular response. -I am happy to see her follow-up in approximately 2 weeks. (2) HTN (hypertension): -adequate control on current regimen. (3) Hypercholesterolemia: -would continue atorvastatin. History of Present Illness Attending Physician: Aniyah Alberts MD History of Present Illness Mrs. Winkler is a 56-year-old female admitted yesterday with new onset atrial fibrillation and a rapid ventricular response. This consultation was ordered to assist in her cardiac management. The patient was in her usual state of health until approximately 1.5 hours prior to her presentation. She had the abrupt onset of palpitations, anxiety, dizziness, and fatigue. The patient felt that she may be experiencing a panic attack, however, she has never been diagnosed with this condition. She presented to the emergency room for further care was noted to be in atrial fibrillation with a rapid ventricular response. She was treated with intravenous diltiazem and magnesium and spontaneously converted to sinus rhythm. Approximately 2 weeks ago, she had a similar experience while attending a . Her symptoms lasted for approximately 1 hour and resolve spontaneously. As she thinks back over the last 2 years, she has had intermittent episodes similar to that described above, however, they are much shorter in duration. She has never known of a cardiac event. She has never had a cardiac catheterization. Patient is currently following the keto diet and has lost approximately 55 lb. 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 She has never experienced exertional chest pain or limiting dyspnea. She further denies syncope, presyncope, PND, orthopnea, lower extremity edema, and claudication. Currently, patient is resting comfortably in bed without complaints. Past medical and surgical history 1. Hypertension 2. Hypercholesterolemia 3. Paroxysmal atrial fibrillation-March 2022 4. Diabetes mellitus 5. Hypothyroidism 6. GERD 7. DJD 8. Allergic rhinitis 9. Anxiety/depression 10. Obesity 11. Obstructive sleep apnea 12. Chronic low back pain 13. Hiatal hernia repair-March 2021 14. Laparoscopic cholecystectomy-March 2021 15. Left breast lumpectomy, benign 16. Tonsillectomy Social history and lives with her Works at [employer] No tobacco Occasional alcohol Family history Mother at 90 from aortic stenosis Father at 70 from CHF A brother had an intracoronary stent placed at the age of 55. Review of systems A 10 review systems was undertaken and negative except that described above. Allergies Allergy/AdvReac Type Severity Reaction Status Date / Time amoxicillin AdvReac Intermediate diarrhea Verified 05/12/21 09:42 mold AdvReac Mild HEAD Verified 05/12/21 09:42 PRESSURE Yeast AdvReac Mild dry skin Verified 05/12/21 09:42 dust AdvReac Mild Sneezing Uncoded 05/12/21 09:42 Home Medications Medication Instructions Recorded Confirmed Type atorvastatin 40 mg tablet 40 mg PO PM tab 07/23/19 08/23/21 History levothyroxine 100 mcg tablet 100 mcg PO QAM tab 07/23/19 08/23/21 History metformin 500 mg tablet 500 mg PO BID 12/30/19 08/23/21 History sertraline 50 mg tablet 50 mg PO PM tab 12/30/19 08/23/21 History loratadine 10 mg tablet (Claritin) 10 mg PO DAILY PRN 01/02/20 08/23/21 History fluticasone propionate 50 2 spray INTRANASAL DAILY PRN 01/16/20 08/23/21 History mcg/actuation nasal spray,suspension (Flonase Allergy Relief) lorazepam 0.5 mg tablet 0.5 mg PO DAILY PRN 01/16/20 08/23/21 History cholecalciferol (vitamin D3) 125 125 mcg PO HS 09/01/20 08/23/21 History mcg (5,000 unit) tablet (Vitamin D3) diclofenac sodium 1 % topical gel 2 g TOPICAL QID PRN 09/01/20 08/23/21 History (Voltaren) ibuprofen 200 mg tablet (Advil) 400 mg PO BID PRN 09/01/20 08/23/21 History lisinopril 2.5 mg tablet 2.5 mg PO QPM 09/01/20 08/23/21 History sitagliptin 100 mg tablet (Januvia) 100 mg PO QAM 09/01/20 08/23/21 History triamcinolone acetonide 0.1 % 1 applic TOPICAL HS PRN 09/01/20 08/23/21 History topical cream dicyclomine 10 mg capsule 20 mg PO BID PRN 30 Days #60 cap 02/17/21 08/23/21 Rx ondansetron HCl 4 mg tablet 4 mg PO Q8H PRN #10 tab 04/01/21 08/23/21 Rx (Zofran) apixaban 5 mg tablet (Eliquis) 5 mg PO BID #60 tab 04/19/22 Rx flecainide 50 mg tablet 50 mg PO Q12H #60 tab 04/19/22 Rx metoprolol tartrate 25 mg tablet 25 mg PO DAILY #30 tab 04/19/22 Rx Patient History Medical History Anxiety and depression Arthritis Atypical ductal hyperplasia of left breast Back problem occasional back pain Benign positional vertigo Diabetes mellitus, type 2 Fatty liver Gastritis RECENT DX WITH EGD GERD (gastroesophageal reflux disease) Hiatal hernia Hyperlipidemia Hypertension Hypothyroidism Kidney disease reason for lisinopril per patient Morbid obesity Sleep apnea "mild"/no device Surgical History H/O cervical biopsy History of anesthesia reaction WITH RECENT EGD 2020 "COULD NOT BREATHE AND WAS CHOKING D/T SALIVA ON VOCAL CORD". ANESTHESIA CHARTED "laryngospasm". History of esophagogastroduodenoscopy (EGD) History of repair of hiatal hernia Laparoscipic Hiatal Hernia Repair Dr. Pennington 04/01/[address] Pennington 04/01/2021 Hx of colonoscopy Hx of lumpectomy left breast--benign S/P sinus surgery S/P tonsillectomy [place] teeth removed Family History (Updated 04/18/22 @ 19:58 by Dayron Snow MD) Father Heart disease Myocardial infarction Mother Heart disease Breast cancer Dx in 80s Atrial fibrillation Grandmother Cancer Hypertension Grandmother (Maternal) Colorectal cancer Grandmother (Paternal) Diabetes Other No family history of adverse response to anesthesia Denies family history of Ovarian cancer Social History Smoking Status: Never smoker Second Hand Exposure: No; Hx Alcohol Use: Yes Alcohol type: wine Hx Substance Use: No Preferred Language: Chinese Communication Ability: Effective Visual Impairment: No Limitations 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 HEENT exam is negative. Neck is supple with full carotid upstrokes. There are no carotid bruits. Jugular venous pressure is flat at 90. There is no thyromegaly. Cardiovascular exam reveals a regular rhythm with a normal S1 and S2. No S3, S4, or murmurs are noted. Lungs are clear without rales, rhonchi, or wheezes. Abdomen is soft and nontender without bruits. Extremities reveal intact radial artery and posterior tibial pulses bilaterally. There is no peripheral edema. Results & Data ([facility]) Vital Signs (Past 12 Hours) Vital Signs Temp Pulse Pulse Resp BP Pulse Ox 04/19/22 07:39 36.5 C 71 16 138/86 98 04/19/22 07:16 59 L 04/19/22 04:06 36.9 C 55 L 16 118/74 98 Laboratory Results CBC notes hemoglobin 12.6, hematocrit 30.3, white count 6.69, and platelet count [id number]. Electrolytes note a sodium of 140, potassium 4.0, chloride 108, bicarb 27, BUN 10, creatinine 0.74, glucose of 137. Magnesium level on presentation was 1.9, currently 2.2. TSH is normal at 1.12. Diagnostic Findings EKG on presentation noted atrial fibrillation with a rapid ventricular response. There is a right-sided conduction delay and inferolateral ST abnormality. Echocardiogram noted normal left ventricular systolic function with ejection fraction 55% and no wall motion abnormalities. There was mild tricuspid regurgitation. Chest x-ray shows no acute disease. PG Care Time/CCT Total # of Minutes Spent Total Time Spent with Patient: Total time spent is greater than 50% in coordination of care (as documented) at patient's floor/unit and/or counseling patient: Coding Level of Care Code 96618 Office/OBS Consult Lvl 4 Diagnoses Atrial fibrillation with rapid ventricular response I48.91 HTN (hypertension) I10 Hypercholesterolemia E78.00
--- NOTE | 2022-04-19 13:20 | Electrocardiogram Report ---
Test Reason : Blood Pressure : / mmHG Vent. Rate : 142 BPM Atrial Rate : 144 BPM P-R Int : 000 ms QRS Dur : 086 ms QT Int : 312 ms P-R-T Axes : 000 060 004 degrees QTc Int : 479 ms Atrial fibrillation with rapid ventricular response Abnormal ECG When compared with ECG of 11-FEB-2021 03:40, Atrial fibrillation has replaced Sinus rhythm Vent. rate has increased BY 61 BPM Confirmed by Mario Bravo ([id number]) on 04/19/2022 1:20:34 PM Referred By: REFERRED SELF Confirmed By:Mario Bravo
== END 2022-04-19 15:06 | disposition home or self-care (01) | DRG 310 ==
LOC: ED 17:46 → 2S 19:24 → SUATTDRO 19:24 → 2S 20:03